=== PATIENT | male | born 2000 | race Caucasian/White ===

== ENCOUNTER 2021-03-20 20:02 | Emergency (ER) | payer SELFPAY ==
[2021-03-20] MEDS ORDERED: Aspirin 81 MG Tab.Chew PO ONE (20:18)
[2021-03-20] MEDS ORDERED: Sodium Chloride 0.9% 10 ML Syringe FLUSH PRN (20:18)
--- NOTE | 2021-03-20 20:53 | EDM.PDOC ---
ED HPI GENERAL MEDICAL PROBLEM - General Chief Complaint: Chest Pain Stated Complaint: CHEST PAIN Time Seen by Provider: 03/20/21 20:10 Source of Information: Reports: Patient History Limitations: Reports: No Limitations - History of Present Illness INITIAL COMMENTS - FREE TEXT/NARRATIVE: The patient presents with chest pain. He says this started about a week ago. He helped lift a heavy couch up some stairs. The pain came on when he was sleeping that night and woke him up. He says the pain is mid sternal and it comes and goes. When he is resting it is gone but with taking a deep breath and moving the pain comes back. He has some shortness of breath with it at times. He has no fever, chills, cough, congestion, abdominal pain, nausea or vomiting. 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 He never had an ablation and he is not on any medications. He does not feel like his hear is racing. He does not smoke. Onset: Gradual Duration: Week(s): Location: Reports: Chest Quality: Reports: Sharp Severity: Moderate Improves with: Reports: None Worsens with: Reports: None Associated Symptoms: Reports: Chest Pain, Shortness of Breath. Denies: Cough, Fever/Chills, Headaches, Nausea/Vomiting Middle Chest Pain Score (Numeric/FACES): 7 - Related Data Allergies Allergy/AdvReac Type Severity Reaction Status Date / Time No Known Allergies Allergy Verified 03/20/21 20:13 Home Meds: Home Meds Naproxen [Naprosyn] 500 mg PO BID PRN #20 tablet 03/20/21 [Rx] Past Medical History Cardiovascular History: Reports: Other (See Below) Other Cardiovascular History: WPW Endocrine/Metabolic History: Reports: Obesity/BMI 30+ - Past Surgical History HEENT Surgical History: Reports: Tonsillectomy Social & Family History - Tobacco Use Tobacco Use Status *Q: Never Tobacco User - Caffeine Use Caffeine Use: Reports: Soda - Recreational Drug Use Recreational Drug Use: No ED ROS GENERAL - Review of Systems Review Of Systems: See Below Constitutional: Reports: No Symptoms HEENT: Reports: No Symptoms Respiratory: Reports: Shortness of Breath Cardiovascular: Reports: Chest Pain Endocrine: Reports: No Symptoms GI/Abdominal: Reports: No Symptoms : Reports: No Symptoms Musculoskeletal: Reports: No Symptoms Skin: Reports: No Symptoms ED EXAM, GENERAL - Physical Exam Exam: See Below Exam Limited By: No Limitations General Appearance: Alert, No Apparent Distress Ears: Normal External Exam Nose: Normal Inspection Head: Atraumatic, Normocephalic Neck: Normal Inspection Respiratory/Chest: No Respiratory Distress, Lungs Clear, Normal Breath Sounds Cardiovascular: Regular Rate, Rhythm, No Edema, No Murmur GI/Abdominal: Soft, Non-Tender, No Organomegaly, No Mass Back Exam: Normal Inspection Extremities: Normal Inspection #1 Interpretation EKG Date: 03/20/21 Time: 20:10 Rhythm: NSR Rate (Beats/Min): 72 Codorus: LAD-Left Codorus Deviation P-Wave: Present QRS: Wide ST-T: Elevated (slight elevation in inferior leads) QT: Normal EKG Interpretation Comments: Q waves in lead III and aVF Course - Vital Signs Last Recorded V/S: Last Vital Signs Temp 97.6 F 03/20/21 20:10 Pulse 71 03/20/21 20:10 Resp 16 03/20/21 20:10 BP 144/63 H 03/20/21 20:10 Pulse Ox 99 03/20/21 20:10 - Orders/Labs/Meds Orders: Active Orders 24 hr Category Date Time Status Cardiac Monitoring [RC] . DIRECTED Care 03/20/21 20:18 Active EKG 12 Lead [EKG Documentation Completion] [RC] ROUTINE Care 03/20/21 20:10 Active Peripheral IV Care [RC] . DIRECTED Care 03/20/21 20:19 Active Chest 1V Frontal [CR] Stat Exams 03/20/21 20:19 Taken Sodium Chloride 0.9% [Saline Flush] Med 03/20/21 20:18 Active 10 ml FLUSH ASDIRECTED PRN Peripheral IV Insertion Adult [OM.PC] Stat Oth 03/20/21 20:18 Ordered Medication Orders Sodium Chloride (Sodium Chloride 0.9% 10 Ml Syringe) 10 ml FLUSH ASDIRECTED PRN PRN Reason: Keep Vein Open Last Admin: 03/20/21 20:35 Dose: 10 ml Documented by: HERMMIC Labs: Laboratory Tests 03/20/21 03/20/21 03/20/21 Range/Units 20:20 20:20 20:20 WBC 13.06 H (4.23-9.07) K/mm3 RBC 5.39 (4.63-6.08) M/mm3 Hgb 15.3 (13.7-17.5) gm/dl Hct 46.6 (40.1-51.0) % MCV 86.5 (79.0-92.2) fl MCH 28.4 (25.7-32.2) pg MCHC 32.8 (32.2-35.5) g/dl RDW Std Deviation 41.9 (35.1-43.9) fL Plt Count 346 H (163-337) K/mm3 MPV 10.4 (9.4-12.3) fl Neut % (Auto) 65.3 (34.0-67.9) % Lymph % (Auto) 25.7 (21.8-53.1) % Mayes % (Auto) 7.7 (5.3-12.2) % Eos % (Auto) 0.8 (0.8-7.0) Baso % (Auto) 0.3 (0.1-1.2) % Neut # (Auto) 8.52 H (1.78-5.38) K/mm3 Lymph # (Auto) 3.36 (1.32-3.57) K/mm3 [place] # (Auto) 1.01 H (0.30-0.82) K/mm3 Eos # (Auto) 0.10 (0.04-0.54) K/mm3 Baso # (Auto) 0.04 (0.01-0.08) K/mm3 D-Dimer, Quantitative 0.28 (0.19-0.50) mg/L Sodium 141 (136-145) mEq/L Potassium 3.6 (3.5-5.1) mEq/L Chloride 104 (98-107) mEq/L Carbon Dioxide 24 (21-32) mEq/L Anion Gap 16.6 H (5-15) BUN 14 (7-18) mg/dL Creatinine 1.1 (0.7-1.3) mg/dL Est Cr Clr Drug Dosing 98.48 mL/min Estimated GFR (MDRD) > 60 (>60) mL/min BUN/Creatinine Ratio 12.7 L (14-18) Glucose 123 H (74-106) mg/dL Calcium 9.2 (8.5-10.1) mg/dL Total Bilirubin 0.8 (0.2-1.0) mg/dL AST 48 H (15-37) U/L ALT 60 (16-63) U/L Alkaline Phosphatase 87 (46-116) U/L Troponin I < 0.017 (0.00-0.056) ng/mL Total Protein 7.9 (6.4-8.2) g/dl Albumin 4.2 (3.4-5.0) g/dl Globulin 3.7 gm/dL Albumin/Globulin Ratio 1.1 (1-2) Meds: Medications Generic Name Dose Route Start Last Admin Trade Name Freq PRN Reason Stop Dose Admin Sodium Chloride 10 ml 03/20/21 20:18 03/20/21 20:35 Sodium Chloride 0.9% 10 Ml Syringe FLUSH 10 ml ASDIRECTED PRN Administration Keep Vein Open Discontinued Medications Generic Name Dose Route Start Last Admin Trade Name Freq PRN Reason Stop Dose Admin Aspirin 324 mg 03/20/21 20:18 03/20/21 20:34 Aspirin 81 Mg Tab.Chew PO 03/20/21 20:19 324 mg ONETIME ONE Administration - Re-Assessments/Exams Free Text/Narrative Re-Assessment/Exam: 03/20/21 20:53 I ordered an IV saline lock, EKG, aspirin, CXR and labs. 03/20/21 21:19 His EKG is not normal. He has a NSR with LVH and left axis deviation. There is slight ST elevation in the inferior leads with borderline QRS. There is also a delta wave consistent with WPW. His CXR shows an elevated WBC of 13.06. His D-dimer is negative. His anion gap is elevated at 16.6. His glucose is elevated at 123. His AST is elevated at 48. His troponin is negative. 03/20/21 22:40 He is doing better with the aspirin. I will discharge him home. I feel he has pleurisy. I will get him on some naprosyn and have him follow up with Dr Claudio. Departure - Departure Time of Disposition: 22:50 Disposition: Home, Self-Care 01 Condition: Good Clinical Impression: Atypical chest pain, Pleurisy, Lamine Parkinson White pattern seen on electrocardiogram Prescriptions: Naproxen [Naprosyn] 500 mg PO BID PRN #20 tablet PRN Reason: Pain Referrals: PCP,None [Primary Care Provider] - Brown Claudio MD [Physician] - 1 Week Forms: ED Department Discharge Additional Instructions: Take the naprosyn 2 times per day as needed for pain. Drink plenty of fluids. 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 Please return if you are worse. Sepsis Event Note (ED) - Evaluation Sepsis Screening Result: No Definite Risk - Focused Exam Vital Signs: Vital Signs Temp Pulse Resp BP Pulse Ox 03/20/21 20:10 97.6 F 71 16 144/63 H 99 - My Orders Last 24 Hours: My Active Orders 03/20/21 20:10 EKG 12 Lead [EKG Documentation Completion] [RC] ROUTINE 03/20/21 20:18 Cardiac Monitoring [RC] . DIRECTED Sodium Chloride 0.9% [Saline Flush] 10 ml FLUSH ASDIRECTED PRN Peripheral IV Insertion Adult [OM.PC] Stat 03/20/21 20:19 Peripheral IV Care [RC] . DIRECTED Chest 1V Frontal [CR] Stat - Assessment/Plan Last 24 Hours: My Active Orders 03/20/21 20:10 EKG 12 Lead [EKG Documentation Completion] [RC] ROUTINE 03/20/21 20:18 Cardiac Monitoring [RC] . DIRECTED Sodium Chloride 0.9% [Saline Flush] 10 ml FLUSH ASDIRECTED PRN Peripheral IV Insertion Adult [OM.PC] Stat 03/20/21 20:19 Peripheral IV Care [RC] . DIRECTED Chest 1V Frontal [CR] Stat
--- NOTE | 2021-03-21 08:20 | CR ---
Chest: Portable view of the chest was obtained. Comparison: No previous chest imaging is available. Heart size and mediastinum are within normal limits. Lungs are clear with no acute parenchymal change. No acute osseous finding is appreciated. Impression: 1. Nothing acute is seen on portable chest x-ray. Diagnostic code #1
== END 2021-03-20 23:03 | disposition home or self-care (01) ==
LOC: JD.ED 20:02
DX: R09.1 Pleurisy (principal); I45.6 Pre-excitation syndrome; E66.9 Obesity, unspecified; Z68.33 Body mass index [BMI] 33.0-33.9, adult
CPT/HCPCS: 36415; 71045; 80053; 84484; 85025; 85379; 93005; 99285; A9270; 93010; 99284

== ENCOUNTER 2021-04-20 09:12 | Inpatient (IN) | payer OTHER ==
[2021-04-20] MEDS ORDERED: Sodium Chloride 0.9% 10 ML Syringe FLUSH PRN (10:03)
[2021-04-20] MEDS ORDERED: Morphine 4 MG/ML Syringe IVPUSH ONE (10:04)
[2021-04-20] MEDS ORDERED: Sodium Chloride 0.9% 1,000 ML IV ONE (10:04)
[2021-04-20] MEDS ORDERED: Ondansetron 4 MG/2 ML SDV IVPUSH ONE (10:04)
--- NOTE | 2021-04-20 10:05 | EDM.PDOC ---
ED HPI GENERAL MEDICAL PROBLEM - General Chief Complaint: Chest Pain Stated Complaint: CHEST PAIN Time Seen by Provider: 04/20/21 09:18 Source of Information: Reports: Patient, Significant Other History Limitations: Reports: No Limitations - History of Present Illness INITIAL COMMENTS - FREE TEXT/NARRATIVE: Patient describes a was diagnosed with Vffci-Kfkiocmtj-Wlegd next month and then on Wednesday started having sharp pain in the mid epigastric retrosternal area. 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 He then started develop upset stomach with some nausea, pain started develop in the right upper and right lower quadrant. He then developed vomiting and has not been able to really keep anything down. He is lost his appetite. He been trying to drink more fluids. Otherwise no coughing or cold symptoms no runny nose or sore throat. Hurts to take a big breath based on the pain that he has in the epigastric right upper quadrant. Hurts more with movement better at rest. No diarrhea. No burning pain or blood in the urine. No syncope or near fainting spell chest pain is more sharp persistent no palpitations noted. Epigastric Pain Score (Numeric/FACES): 8 - Related Data Allergies Allergy/AdvReac Type Severity Reaction Status Date / Time No Known Allergies Allergy Verified 04/20/21 09:23 Home Meds: Home Meds . [No Known Home Meds] 04/20/21 [History] Past Medical History Cardiovascular History: Reports: Other (See Below) Other Cardiovascular History: WPW Endocrine/Metabolic History: Reports: Obesity/BMI 30+ - Past Surgical History HEENT Surgical History: Reports: Tonsillectomy Social & Family History - Tobacco Use Tobacco Use Status *Q: Never Tobacco User - Caffeine Use Caffeine Use: Reports: Soda - Recreational Drug Use Recreational Drug Use: No ED ROS GENERAL - Review of Systems Review Of Systems: See Below Constitutional: Reports: Fever. Denies: Chills HEENT: Denies: Rhinitis, Vision Change Respiratory: Reports: Shortness of Breath, Cough Cardiovascular: Reports: Chest Pain. Denies: Dyspnea on Exertion, Lightheadedness, Palpitations, Syncope GI/Abdominal: Reports: Abdominal Pain, Decreased Appetite, Nausea, Vomiting. Denies: Distension : Denies: Dysuria, Flank Pain, Frequency, Urgency Musculoskeletal: Denies: Neck Pain Skin: Reports: No Symptoms Neurological: Denies: Dizziness, Headache Psychiatric: Reports: No Symptoms ED EXAM, GENERAL - Physical Exam Exam: See Below Exam Limited By: No Limitations General Appearance: Alert, WD/WN, No Apparent Distress, Moderate Distress Eye Exam: Bilateral Eye: EOMI, PERRL Throat/Mouth: Normal Oropharynx Head: Atraumatic Neck: Supple Respiratory/Chest: No Respiratory Distress, Lungs Clear, Normal Breath Sounds Cardiovascular: Normal Peripheral Pulses, Regular Rate, Rhythm, No Edema, No JVD Peripheral Pulses: 2+: Radial (L), Radial (R) GI/Abdominal: Normal Bowel Sounds, Soft, No Distention, Rebound, Tender, Other (Right lower quadrant pain with rebound tenderness, does have some mild right upper quadrant tenderness no David's tenderness however) Extremities: Normal Range of Motion, No Pedal Edema #1 Interpretation EKG Date: 04/20/21 Time: 11:11 Rhythm: NSR Comparison: No Change (I reviewed the EKG showing sinus rhythm rate of 78 DE 149 QRS is 78 QT corrected 372 delta waves noted in lead V2, inferior Q waves noted in 3 aVF, do not agree with interpretation for an acute MO there is no major acute ST elevation. Compared with his EKG of March 20, 2021) EKG Interpretation Comments: Today's EKG is compared with EKG from March 20, 2021 and it still shows what looks like the delta waves, does show inferior Q waves same leads and otherwise no appreciable changes. Course - Vital Signs Text/Narrative:: Rule out acute appendicitis cholecystitis biliary colic gastroesophageal reflux acute coronary syndrome although very unlikely with no risk factors with mom and dad are still living in otherwise healthy, non-smoker no alcohol or drug use. Will reevaluate Vkgwd-Crpgynkqv-Ylkff at this point he does not show any signs of any supraventricular arrhythmia. Last Recorded V/S: Last Vital Signs Temp 99.1 F 04/20/21 14:02 Pulse 79 04/20/21 14:02 Resp 16 04/20/21 14:02 BP 134/77 04/20/21 14:02 Pulse Ox 99 04/20/21 14:02 - Orders/Labs/Meds Orders: Active Orders 24 hr Category Date Time Status Sodium Chloride 0.9% [Saline Flush] Med 04/20/21 11:30 Active 10 ml FLUSH ASDIRECTED Sodium Chloride 0.9% [Saline Flush] Med 04/20/21 10:03 Active 10 ml FLUSH ASDIRECTED PRN Peripheral IV Insertion Adult [OM.PC] Stat Oth 04/20/21 10:03 Ordered EKG 12 Lead [EK] Stat Ther 04/20/21 10:45 Ordered Medication Orders Docusate Sodium (Docusate Sodium 100 Mg Cap) 100 mg PO BID PRN PRN Reason: Constipation Enoxaparin Sodium (Enoxaparin 40 Mg/0.4 Ml Syringe) 40 mg SUBCUT DAILY ELOINA Sodium Chloride (Normal Saline) 1,000 mls @ 125 mls/hr IV ASDIRECTED ELOINA Last Admin: 04/20/21 14:21 Dose: 125 mls/hr Documented by: MILTON Morphine Sulfate (Morphine 2 Mg/Ml Syringe) 2 mg IVPUSH Q2H PRN PRN Reason: Pain (severe 7-10) Stop: 04/21/21 13:08 Last Admin: 04/20/21 14:18 Dose: 2 mg Documented by: MILTON Ondansetron HCl (Ondansetron 4 Mg/2 Ml Sdv) 4 mg IV Q4H PRN PRN Reason: Nausea/Vomiting Last Admin: 04/20/21 14:18 Dose: 4 mg Documented by: MILTON Pantoprazole Sodium (Pantoprazole 40 Mg Vial) 40 mg IV Q12HR ELOINA Sodium Chloride (Sodium Chloride 0.9% 10 Ml Syringe) 10 ml FLUSH ASDIRECTED PRN PRN Reason: Keep Vein Open Last Admin: 04/20/21 10:41 Dose: 10 ml Documented by: ADRIANA Sodium Chloride (Sodium Chloride 0.9% 10 Ml Syringe) 10 ml FLUSH ASDIRECTED ELOINA Last Admin: 04/20/21 11:44 Dose: 10 ml Documented by: RIGO Temazepam (Temazepam 15 Mg Cap) 15 mg PO BEDTIME PRN PRN Reason: Sleep Labs: Laboratory Tests 04/20/21 04/20/21 04/20/21 Range/Units 10:35 10:35 10:35 WBC 23.34 H (4.23-9.07) K/mm3 RBC 5.39 (4.63-6.08) M/mm3 Hgb 15.4 (13.7-17.5) gm/dl Hct 46.9 (40.1-51.0) % MCV 87.0 (79.0-92.2) fl MCH 28.6 (25.7-32.2) pg MCHC 32.8 (32.2-35.5) g/dl RDW Std Deviation 45.8 H (35.1-43.9) fL Plt Count 308 (163-337) K/mm3 MPV 11.0 (9.4-12.3) fl Neut % (Auto) 84.9 H (34.0-67.9) % Lymph % (Auto) 6.4 L (21.8-53.1) % [place] % (Auto) 8.3 (5.3-12.2) % Eos % (Auto) 0 L (0.8-7.0) Baso % (Auto) 0.1 (0.1-1.2) % Neut # (Auto) 19.79 H (1.78-5.38) K/mm3 Lymph # (Auto) 1.50 (1.32-3.57) K/mm3 [place] # (Auto) 1.94 H (0.30-0.82) K/mm3 Eos # (Auto) 0.00 L (0.04-0.54) K/mm3 Baso # (Auto) 0.03 (0.01-0.08) K/mm3 Manual Slide Review Abnormal smear Sodium 137 (136-145) mEq/L Potassium 3.6 (3.5-5.1) mEq/L Chloride 97 L (98-107) mEq/L Carbon Dioxide 28 (21-32) mEq/L Anion Gap 15.6 H (5-15) BUN 18 (7-18) mg/dL Creatinine 1.1 (0.7-1.3) mg/dL Est Cr Clr Drug Dosing 105.34 mL/min Estimated GFR (MDRD) > 60 (>60) mL/min BUN/Creatinine Ratio 16.4 (14-18) Glucose 139 H (70-99) mg/dL Calcium 9.5 (8.5-10.1) mg/dL Total Bilirubin 2.4 H (0.2-1.0) mg/dL AST 147 H (15-37) U/L ALT 541 H (16-63) U/L Alkaline Phosphatase 240 H (46-116) U/L Troponin I < 0.017 (0.00-0.056) ng/mL C-Reactive Protein 5.2 H* (<1.0) mg/dL Total Protein 8.4 H (6.4-8.2) g/dl Albumin 4.3 (3.4-5.0) g/dl Globulin 4.1 gm/dL Albumin/Globulin Ratio 1.1 (1-2) Triglycerides 93 (<150) mg/dL Cholesterol 215 H (<200) mg/dL LDL Cholesterol Direct 127 H* (<100) mg/dL HDL Cholesterol 57.0 (40-59) mg/dL Lipase 2430 H (73-393) U/L SARS-CoV-2 RNA (KYLER) (NEGATIVE) 04/20/21 Range/Units 12:58 WBC (4.23-9.07) K/mm3 RBC (4.63-6.08) M/mm3 Hgb (13.7-17.5) gm/dl Hct (40.1-51.0) % MCV (79.0-92.2) fl MCH (25.7-32.2) pg MCHC (32.2-35.5) g/dl RDW Std Deviation (35.1-43.9) fL Plt Count (163-337) K/mm3 MPV (9.4-12.3) fl Neut % (Auto) (34.0-67.9) % Lymph % (Auto) (21.8-53.1) % [place] % (Auto) (5.3-12.2) % Eos % (Auto) (0.8-7.0) Baso % (Auto) (0.1-1.2) % Neut # (Auto) (1.78-5.38) K/mm3 Lymph # (Auto) (1.32-3.57) K/mm3 [place] # (Auto) (0.30-0.82) K/mm3 Eos # (Auto) (0.04-0.54) K/mm3 Baso # (Auto) (0.01-0.08) K/mm3 Manual Slide Review Sodium (136-145) mEq/L Potassium (3.5-5.1) mEq/L Chloride (98-107) mEq/L Carbon Dioxide (21-32) mEq/L Anion Gap (5-15) BUN (7-18) mg/dL Creatinine (0.7-1.3) mg/dL Est Cr Clr Drug Dosing mL/min Estimated GFR (MDRD) (>60) mL/min BUN/Creatinine Ratio (14-18) Glucose (70-99) mg/dL Calcium (8.5-10.1) mg/dL Total Bilirubin (0.2-1.0) mg/dL AST (15-37) U/L ALT (16-63) U/L Alkaline Phosphatase (46-116) U/L Troponin I (0.00-0.056) ng/mL C-Reactive Protein (<1.0) mg/dL Total Protein (6.4-8.2) g/dl Albumin (3.4-5.0) g/dl Globulin gm/dL Albumin/Globulin Ratio (1-2) Triglycerides (<150) mg/dL Cholesterol (<200) mg/dL LDL Cholesterol Direct (<100) mg/dL HDL Cholesterol (40-59) mg/dL Lipase (73-393) U/L SARS-CoV-2 RNA (KYLER) Negative (NEGATIVE) White blood cell count 23,300 hemoglobin 15.4 hematocrit 46.9 platelet count is 308,019.79% neutrophils sodium 137 potassium 3.6 chloride 97 CO2 28 BUN is 18 creatinine 1.1 creatinine clearance greater than 60 glucose is 139 bilirubin 2.4 AST 147 ALT 541 alkaline phos 240 troponin negative CRP is 5.2 lipase is 2400. Meds: Medications Generic Name Dose Route Start Last Admin Trade Name Freq PRN Reason Stop Dose Admin Docusate Sodium 100 mg 04/20/21 13:03 Docusate Sodium 100 Mg Cap PO BID PRN Constipation Enoxaparin Sodium 40 mg 04/21/21 09:00 Enoxaparin 40 Mg/0.4 Ml Syringe SUBCUT DAILY ELOINA Sodium Chloride 1,000 mls @ 125 mls/hr 04/20/21 13:15 04/20/21 14:21 Normal Saline IV 125 mls/hr ASDIRECTED ELOINA Administration Morphine Sulfate 2 mg 04/20/21 13:03 04/20/21 14:18 Morphine 2 Mg/Ml Syringe IVPUSH 04/21/21 13:08 2 mg Q2H PRN Administration Pain (severe 7-10) Ondansetron HCl 4 mg 04/20/21 13:03 04/20/21 14:18 Ondansetron 4 Mg/2 Ml Sdv IV 4 mg Q4H PRN Administration Nausea/Vomiting Pantoprazole Sodium 40 mg 04/20/21 21:00 Pantoprazole 40 Mg Vial IV Q12HR ELOINA Sodium Chloride 10 ml 04/20/21 10:03 04/20/21 10:41 Sodium Chloride 0.9% 10 Ml Syringe FLUSH 10 ml ASDIRECTED PRN Administration Keep Vein Open Sodium Chloride 10 ml 04/20/21 11:30 04/20/21 11:44 Sodium Chloride 0.9% 10 Ml Syringe FLUSH 10 ml ASDIRECTED ELOINA Administration Temazepam 15 mg 04/20/21 13:03 Temazepam 15 Mg Cap PO BEDTIME PRN Sleep Discontinued Medications Generic Name Dose Route Start Last Admin Trade Name Freq PRN Reason Stop Dose Admin Diatrizoate Meglum/Diatrizoate Sod 120 ml 04/20/21 11:16 04/20/21 11:44 Diatrizoate Meglumine/Diatrizoate Sodium 37% 120 Ml Bottle PO 04/20/21 11:17 45 ml ONETIME ONE Administration Sodium Chloride 1,000 mls @ 999 mls/hr 04/20/21 10:04 04/20/21 10:40 Normal Saline IV 04/20/21 11:04 999 mls/hr ONETIME ONE Administration Lactated Ringer's 1,000 mls @ 999 mls/hr 04/20/21 12:31 04/20/21 12:39 Ringers, Lactated IV 04/20/21 13:31 999 mls/hr .BOLUS ONE Administration Iopamidol 50 ml 04/20/21 11:16 04/20/21 11:44 Iopamidol 612 Mg/Ml 50 Ml Sdv IVPUSH 04/20/21 11:17 50 ml ONETIME ONE Administration Iopamidol 100 ml 04/20/21 11:16 04/20/21 11:44 Iopamidol 612 Mg/Ml 100 Ml Bottle IVPUSH 04/20/21 11:17 100 ml ONETIME ONE Administration Morphine Sulfate 4 mg 04/20/21 10:04 04/20/21 10:40 Morphine 4 Mg/Ml Syringe IVPUSH 04/20/21 10:05 4 mg ONETIME ONE Administration Ondansetron HCl 4 mg 04/20/21 10:04 04/20/21 10:37 Ondansetron 4 Mg/2 Ml Sdv IVPUSH 04/20/21 10:05 4 mg ONETIME ONE Administration Pantoprazole Sodium 40 mg 04/20/21 12:32 04/20/21 12:39 Pantoprazole 40 Mg Vial IVPUSH 04/20/21 12:33 40 mg ONETIME ONE Administration - Radiology Interpretation Free Text/Narrative:: Portable chest x-ray compared with chest x-ray from March 20, 2021 shows heart size mediastinum within normal limits lungs are clear with no acute parenchymal change no acute osseous abnormality otherwise nothing acute on portable chest x- ray. CT Results Date: 04/20/21 - Re-Assessments/Exams Free Text/Narrative Re-Assessment/Exam: 04/20/21 12:29 Patient is doing better tolerating IV fluids pain is better. Reviewed the results especially with elevated white count elevated liver function tests will screen ultrasound to rule out obstructive stone otherwise patient will need to be admitted. Will discuss case with . Patient otherwise will be giving more IV fluid resuscitation pain management 04/20/21 12:[address] Watkins for admit and further evaluation Departure - Departure Time of Disposition: 11:00 Disposition: Admitted As Inpatient 64 Condition: Fair Clinical Impression: Pancreatitis, acute Qualifiers: Pancreatitis type: biliary Acute pancreatitis complication: unspecified Qualified Code(s): K85.10 - Biliary acute pancreatitis without necrosis or infection Leukocytosis, unspecified Qualifiers: Leukocytosis type: bandemia Qualified Code(s): D72.825 - Bandemia Sepsis Event Note (ED) - Evaluation Sepsis Screening Result: No Definite Risk - Focused Exam Vital Signs: Vital Signs Temp Pulse Resp BP Pulse Ox 04/20/21 09:19 97.4 F 98 16 137/82 95 - My Orders Last 24 Hours: My Active Orders 04/20/21 10:03 Sodium Chloride 0.9% [Saline Flush] 10 ml FLUSH ASDIRECTED PRN Peripheral IV Insertion Adult [OM.PC] Stat 04/20/21 10:45 EKG 12 Lead [EK] Stat 04/20/21 11:30 Sodium Chloride 0.9% [Saline Flush] 10 ml FLUSH ASDIRECTED - Assessment/Plan Last 24 Hours: My Active Orders 04/20/21 10:03 Sodium Chloride 0.9% [Saline Flush] 10 ml FLUSH ASDIRECTED PRN Peripheral IV Insertion Adult [OM.PC] Stat 04/20/21 10:45 EKG 12 Lead [EK] Stat 04/20/21 11:30 Sodium Chloride 0.9% [Saline Flush] 10 ml FLUSH ASDIRECTED
--- NOTE | 2021-04-20 10:42 | CR ---
Chest: Portable view of the chest was obtained. Comparison: Prior chest x-ray of 03/20/21. Heart size and mediastinum are within normal limits. Lungs are clear with no acute parenchymal change. No acute osseous abnormality is appreciated. Impression: 1. Nothing acute is identified on portable chest x-ray. Diagnostic code #1
[2021-04-20] MEDS ORDERED: Diatrizoate Meglumine/Diatrizoate Sodium 37% 120 ML Bottle PO ONE (11:16)
[2021-04-20] MEDS ORDERED: Iopamidol 612 MG/ML 50 ML SDV IVPUSH ONE (11:16)
[2021-04-20] MEDS ORDERED: Iopamidol 612 MG/ML 100 ML Bottle IVPUSH ONE (11:16)
[2021-04-20] MEDS ORDERED: Sodium Chloride 0.9% 10 ML Syringe FLUSH SCH (11:30)
--- NOTE | 2021-04-20 12:14 | CT ---
CT abdomen and pelvis Technique: Multiple axial sections were obtained from above the dome of the diaphragm inferiorly through the pubic symphysis. Intravenous contrast as well as a small amount of oral contrast is seen. Additional delayed images were obtained through the bladder. Reconstructed coronal and sagittal images were obtained. Comparison: No previous abdominal or pelvic imaging is available Findings: Inflammatory change is seen either off the inferior pancreas or duodenum. This extends into the anterior pararenal fascia and slightly into the pelvis. This inflammatory change is noted on both sides. Slight atelectasis is noted within both lung bases. Liver contains no focal parenchymal abnormality. Spleen appears normal. Adrenal glands show no nodule. Kidneys show symmetric contrast enhancement without hydronephrosis or mass. Abdominal aorta shows no aneurysm. No retroperitoneal adenopathy or mesenteric abnormalities are seen. No pelvic mass or adenopathy is seen. Delayed images show contrast within the distal ureters and within the bladder. Normal appendix is felt to be visualized on the parasagittal images. Impression: 1. Inflammatory change either off the inferior pancreas or duodenum. This causes inflammatory change within the anterior pararenal fascia extending into the pelvis on both sides. Please correlate with patient's symptoms and laboratory values. 2. Slight atelectasis within the lung bases. 3. No other acute abnormality is appreciated on CT study of the abdomen and pelvis. Diagnostic code #3
[2021-04-20] MEDS ORDERED: Lactated Ringers 1,000 ML IV ONE (12:31)
[2021-04-20] MEDS ORDERED: Pantoprazole 40 MG Vial IVPUSH ONE (12:32)
[2021-04-20] MEDS ORDERED: Temazepam 15 MG Cap PO PRN (13:03)
[2021-04-20] MEDS ORDERED: Ondansetron 4 MG/2 ML SDV IV PRN (13:03)
[2021-04-20] MEDS ORDERED: Docusate Sodium 100 MG Cap PO PRN (13:03)
--- NOTE | 2021-04-20 13:11 | PCM.HP.2 ---
H&P History of Present Illness - General Date of Service: 04/20/21 Admit Problem/Dx: Admission Diagnosis/Problem Admission Diagnosis/Problem Pancreatitis due to biliary obstruction Source of Information: Patient History Limitations: Reports: No Limitations - History of Present Illness Initial Comments - Free Text/Narative: The patient is an otherwise healthy 20-year-old gentleman who has presented to the emergency department with a complaint of midsternal chest pain. The patient had presented to the emergency department because he has been recently diagnosed with [id number]-Lawrixhuh-Avszq syndrome and he has been told previously that this is resulted in his chest pain. The patient had been worked up in the emergency department and it was reported that he had epigastric pain along with right upper quadrant pain. The patient says that his pain started up around 7 PM 2 days ago and did not have a specific aggravating event. The patient says that his pain has been worsened with the use of food. He also says that the pain has been sharp and stabbing. The patient also says that he has had some nausea and vomiting and has not been able to keep food or water down. The patient denies any alcohol use. The patient says that he is currently working. The patient s ays that he has follow-up scheduled with cardiology. Onset of Symptoms: Reports: Sudden Duration of Symptoms: Reports: Day(s):, Getting Worse Location: Reports: Abdomen Quality: Reports: Burning, Stabbing Severity: Moderate Improves with: Reports: Rest Worsens with: Reports: Eating Associated Symptoms: Reports: Nausea/Vomiting Epigastric Pain Score (Numeric/FACES): 8 - Related Data Allergies/Adverse Reactions: Allergies Allergy/AdvReac Type Severity Reaction Status Date / Time No Known Allergies Allergy Verified 04/20/21 09:23 Home Medications: Home Meds . [No Known Home Meds] 04/20/21 [History] Past Medical History HEENT History: Reports: None Cardiovascular History: Reports: Other (See Below) Other Cardiovascular History: WPW Respiratory History: Reports: None Gastrointestinal History: Reports: None Genitourinary History: Reports: None Musculoskeletal History: Reports: None Neurological History: Reports: None Psychiatric History: Reports: None Endocrine/Metabolic History: Reports: Obesity/BMI 30+ Hematologic History: Reports: None Immunologic History: Reports: None Oncologic (Cancer) History: Reports: None Dermatologic History: Reports: None - Infectious Disease History Infectious Disease History: Reports: None - Past Surgical History HEENT Surgical History: Reports: Tonsillectomy Social & Family History - Tobacco Use Tobacco Use Status *Q: Never Tobacco User - Caffeine Use Caffeine Use: Reports: Soda - Alcohol Use Alcohol Use History: No - Recreational Drug Use Recreational Drug Use: No - Living Situation & Occupation Living situation: Reports: Single Occupation: Employed H&P Review of Systems - Review of Systems: Review Of Systems: See Below General: Reports: Weakness, Decreased Appetite HEENT: Reports: No Symptoms Pulmonary: Reports: Shortness of Breath, Pleuritic Chest Pain Cardiovascular: Reports: Chest Pain Gastrointestinal: Reports: Abdominal Pain, Nausea, Vomiting Genitourinary: Reports: No Symptoms Musculoskeletal: Reports: No Symptoms Skin: Reports: No Symptoms Psychiatric: Reports: No Symptoms Neurological: Reports: No Symptoms Hematologic/Lymphatic: Reports: No Symptoms Immunologic: Reports: No Symptoms Exam - Exam Exam: See Below - Vital Signs Vital Signs: Last Vital Signs Temp 36.3 C 04/20/21 09:19 Pulse 98 04/20/21 09:19 Resp 16 04/20/21 09:19 BP 137/82 04/20/21 09:19 Pulse Ox 95 04/20/21 09:19 Weight: 95.254 kg - Exam Quality Assessment: No: Supplemental Oxygen General: Alert, Oriented, Cooperative, Mild Distress HEENT: Conjunctiva Clear, EACs Clear, Hearing Intact, Nares Patent, PERRLA. No: Mucosa Moist & [place] (Dry) Neck: Supple, Trachea Midline Lungs: Clear to Auscultation, Normal Respiratory Effort Cardiovascular: Regular Rate, Regular Rhythm GI/Abdominal Exam: Normal Bowel Sounds, Soft, No Distention, Tender (Right upper quadrant). No: Guarding, Rigid, Rebound (Male) Exam: Deferred Rectal (Males) Exam: Deferred Back Exam: Normal Inspection, Full Range of Motion Extremities: Normal Inspection, Normal Range of Motion, No Pedal Edema Skin: Warm, Dry, Intact Neurological: Cranial Nerves Intact, Reflexes Equal Bilateral, Normal Gait, Normal Speech Neuro Extensive - Mental Status: Alert, Oriented x3 Neuro Extensive - Motor, Sensory, Reflexes: CN II-XII Intact Psychiatric: Alert, Normal Affect, Normal Mood - Patient Data Lab Results Last 24 hrs: Laboratory Results - last 24 hr 05/23/21 05/23/21 Range/Units 10:35 10:35 WBC 23.34 H (4.23-9.07) K/mm3 RBC 5.39 (4.63-6.08) M/mm3 Hgb 15.4 (13.7-17.5) gm/dl Hct 46.9 (40.1-51.0) % MCV 87.0 (79.0-92.2) fl MCH 28.6 (25.7-32.2) pg MCHC 32.8 (32.2-35.5) g/dl RDW Std Deviation 45.8 H (35.1-43.9) fL Plt Count 308 (163-337) K/mm3 MPV 11.0 (9.4-12.3) fl Neut % (Auto) 84.9 H (34.0-67.9) % Lymph % (Auto) 6.4 L (21.8-53.1) % [place] % (Auto) 8.3 (5.3-12.2) % Eos % (Auto) 0 L (0.8-7.0) Baso % (Auto) 0.1 (0.1-1.2) % Neut # (Auto) 19.79 H (1.78-5.38) K/mm3 Lymph # (Auto) 1.50 (1.32-3.57) K/mm3 [place] # (Auto) 1.94 H (0.30-0.82) K/mm3 Eos # (Auto) 0.00 L (0.04-0.54) K/mm3 Baso # (Auto) 0.03 (0.01-0.08) K/mm3 Manual Slide Review Abnormal smear Sodium 137 (136-145) mEq/L Potassium 3.6 (3.5-5.1) mEq/L Chloride 97 L (98-107) mEq/L Carbon Dioxide 28 (21-32) mEq/L Anion Gap 15.6 H (5-15) BUN 18 (7-18) mg/dL Creatinine 1.1 (0.7-1.3) mg/dL Est Cr Clr Drug Dosing 105.34 mL/min Estimated GFR (MDRD) > 60 (>60) mL/min BUN/Creatinine Ratio 16.4 (14-18) Glucose 139 H (70-99) mg/dL Calcium 9.5 (8.5-10.1) mg/dL Total Bilirubin 2.4 H (0.2-1.0) mg/dL AST 147 H (15-37) U/L ALT 541 H (16-63) U/L Alkaline Phosphatase 240 H (46-116) U/L Troponin I < 0.017 (0.00-0.056) ng/mL C-Reactive Protein 5.2 H* (<1.0) mg/dL Total Protein 8.4 H (6.4-8.2) g/dl Albumin 4.3 (3.4-5.0) g/dl Globulin 4.1 gm/dL Albumin/Globulin Ratio 1.1 (1-2) Lipase 2430 H (73-393) U/L Result Diagrams: 04/20/21 10:35 04/20/21 10:35 Sepsis Event Note - Evaluation Sepsis Screening Result: No Definite Risk - Focused Exam Vital Signs: Vital Signs Temp Pulse Resp BP Pulse Ox 04/20/21 09:19 36.3 C 98 16 137/82 95 - Problem List (1) Pancreatitis, acute SNOMED Code(s): 474912345 ICD Code: K85.90 - ACUTE PANCREATITIS WITHOUT NECROSIS OR INFECTION, UNSP Status: Acute Current Visit: Yes Qualifiers: Pancreatitis type: biliary Acute pancreatitis complication: unspecified Qualified Code(s): K85.10 - Biliary acute pancreatitis without necrosis or infection (2) Leukocytosis, unspecified SNOMED Code(s): 342184109, 817362957 ICD Code: D72.829 - ELEVATED WHITE BLOOD CELL COUNT, UNSPECIFIED Status: Acute Priority: High Current Visit: Yes Qualifiers: Leukocytosis type: bandemia Qualified Code(s): D72.825 - Bandemia (3) Pleurisy SNOMED Code(s): 412960832 ICD Code: R09.1 - PLEURISY Status: Acute Priority: High Current Visit: Yes (4) Lamine Parkinson White pattern seen on electrocardiogram SNOMED Code(s): 297027113 ICD Code: I45.6 - PRE-EXCITATION SYNDROME Status: Acute Priority: High Current Visit: Yes Problem List Initiated/Reviewed/Updated: Yes Orders Last 24hrs: Active Orders 24 hr Category Date Time Status Patient Status [ADT] Routine ADT 04/20/21 13:03 Ordered Cardiac Monitoring [RC] CONTINUOUS Care 04/20/21 13:07 Ordered EKG Documentation Completion [RC] ASDIRECTED Care 04/20/21 10:45 Active Oxygen Therapy [RC] PRN Care 04/20/21 13:03 Ordered Peripheral IV Care [RC] . DIRECTED Care 04/20/21 10:04 Active Up ad Angie [RC] ASDIRECTED Care 04/20/21 13:03 Ordered VTE/DVT Education [RC] PER UNIT ROUTINE Care 04/20/21 13:03 Ordered Vital Signs [RC] Q4H Care 04/20/21 13:03 Ordered Nothing per Oral Now Diet [DIET] Diet 04/20/21 Dinner Ordered Abdomen Ltd [US] Stat Exams 04/20/21 12:31 Ordered CBC WITH AUTO DIFF [HEME] AM Lab 04/21/21 05:11 Ordered COMPREHENSIVE METABOLIC PN,CMP [CHEM] AM Lab 04/21/21 05:11 Ordered CORONAVIRUS COVID-19 KYLER [MOLEC] Stat Lab 04/20/21 12:58 Received UA RFX KELLEN AND CULT IF INDIC [URIN] Stat Lab 04/20/21 10:03 Ordered Docusate Sodium [Colace] Med 04/20/21 13:03 Ordered 100 mg PO BID PRN Enoxaparin [Lovenox] Med 04/21/21 09:00 Ordered 30 mg SUBCUT DAILY Lactated Ringers [Ringers, Lactated] 1,000 ml Med 04/20/21 12:31 Active IV .BOLUS Morphine Med 04/20/21 13:03 Ordered 2 mg IVPUSH Q2H PRN Ondansetron [Zofran] Med 04/20/21 13:03 Ordered 4 mg IV Q4H PRN Pantoprazole [ProTONIX IV] Med 04/20/21 21:00 Ordered 40 mg IV Q12HR Sodium Chloride 0.9% @ 125 MLS/HR (1000ml) Med 04/20/21 13:15 Ordered Sodium Chloride 0.9% [Normal Saline] 1,000 ml IV ASDIRECTED Sodium Chloride 0.9% [Saline Flush] Med 04/20/21 11:30 Active 10 ml FLUSH ASDIRECTED Sodium Chloride 0.9% [Saline Flush] Med 04/20/21 10:03 Active 10 ml FLUSH ASDIRECTED PRN Temazepam [Restoril] Med 04/20/21 13:03 Ordered 15 mg PO BEDTIME PRN Peripheral IV Insertion Adult [OM.PC] Stat Oth 04/20/21 10:03 Ordered Resuscitation Status Routine Resus Stat 04/20/21 13:03 Ordered EKG 12 Lead [EK] Stat Ther 04/20/21 10:45 Ordered Medication Orders Docusate Sodium (Docusate Sodium 100 Mg Cap) 100 mg PO BID PRN PRN Reason: Constipation Enoxaparin Sodium (Enoxaparin 30 Mg/0.3 Ml Syringe) 30 mg SUBCUT DAILY ELOINA Lactated Ringer's (Ringers, Lactated) 1,000 mls @ 999 mls/hr IV .BOLUS ONE Stop: 04/20/21 13:31 Last Admin: 04/20/21 12:39 Dose: 999 mls/hr Documented by: MYKE Sodium Chloride (Normal Saline) 1,000 mls @ 125 mls/hr IV ASDIRECTED ELOINA Morphine Sulfate (Morphine 2 Mg/Ml Syringe) 2 mg IVPUSH Q2H PRN PRN Reason: Pain (severe 7-10) Stop: 04/21/21 13:08 Ondansetron HCl (Ondansetron 4 Mg/2 Ml Sdv) 4 mg IV Q4H PRN PRN Reason: Nausea/Vomiting Pantoprazole Sodium (Pantoprazole 40 Mg Vial) 40 mg IV Q12HR ELOINA Sodium Chloride (Sodium Chloride 0.9% 10 Ml Syringe) 10 ml FLUSH ASDIRECTED PRN PRN Reason: Keep Vein Open Last Admin: 04/20/21 10:41 Dose: 10 ml Documented by: ADRIANA Sodium Chloride (Sodium Chloride 0.9% 10 Ml Syringe) 10 ml FLUSH ASDIRECTED ELOINA Last Admin: 04/20/21 11:44 Dose: 10 ml Documented by: BUSCGRE Temazepam (Temazepam 15 Mg Cap) 15 mg PO BEDTIME PRN PRN Reason: Sleep Assessment/Plan Comment:: The patient is a 20-year-old gentleman who has been admitted to inpatient for acute pancreatitis, likely biliary induced. An ultrasound of the patient's right upper quadrant has been ordered to the emergency department is currently pending. The patient will be kept on IV fluids of normal saline at 125 mL/h. He will be kept n.p.o. with the exception of ice chips. The patient will have his pain controlled with the use of IV narcotics. DVT prophylaxis will be done with 40 mg of Lovenox daily. If necessary, general surgery will be consulted. The patient also has repeat laboratory studies ordered to include a lipid profile to help exclude hypertriglyceridemia as a cause of his pancreatitis. 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 As the patient is currently asymptomatic with the exception of the chest pain that he has been experiencing observation is indicated for treatment of his [id number]-Rdgmeonyg-[id number] syndrome. If the patient goes into reentry tachycardia will consider verapamil.
--- NOTE | 2021-04-20 14:12 | US ---
Limited abdominal ultrasound: Multiple real-time images were obtained. Comparison: Prior CT abdomen and pelvis study performed on the same day (04/20/21 11:37 AM). Technologist's note: Suboptimal study with patient's midline being very gaseous and could not lie on left side for too long. Findings: Liver not well visualized. No definite abnormality is appreciated. Gallbladder shows evidence of cholelithiasis. No gallbladder wall thickening or biliary duct dilatation is seen. Right kidney shows no hydronephrosis but is otherwise not wll-seen. Right kidney measures about 12.6 cm in size. Mid to proximal aorta not seen. Pancreas is obscured by overlying bowel gas. Inferior vena cava is patent. Main portal vein shows normal hepatopedal flow. Impression: 1. Less than optimal study. 2. Cholelithiasis with no gallbladder wall thickening or biliary duct dilatation being seen. 3. Pancreas is completely obscured. Diagnostic code #3
[2021-04-20] MEDS: Morphine 2 MG/ML SYRINGE IVPUSH PRN ×4 (14:18→22:51)
[2021-04-20] MEDS: Sodium Chloride 0.9% 1,000 ML IV SCH ×2 (14:21→21:16)
[2021-04-20] MEDS: Pantoprazole 40 MG Vial IV SCH (20:04)
[2021-04-21] MEDS: Morphine 2 MG/ML SYRINGE IVPUSH PRN ×8 (01:13→22:37)
[2021-04-21] MEDS: Enoxaparin 40 MG/0.4 ML Syringe SUBCUT SCH (08:35)
[2021-04-21] MEDS: Pantoprazole 40 MG Vial IV SCH ×2 (08:36→21:05)
--- NOTE | 2021-04-21 08:53 | PCM.PN ---
<Eulalio Molina - Last Filed: 04/21/21 11:13> - General Info Date of Service: 04/21/21 Admission Dx/Problem (Free Text): Admission Diagnosis/Problem Admission Diagnosis/Problem Pancreatitis due to biliary obstruction Functional Status: Reports: Ambulating, Urinating. Denies: Pain Controlled (Reports significant abdominal pain but is quite sleepy and appears comfortable. ), Tolerating Diet (NPO), New Symptoms - Review of Systems General: Reports: Weakness, Fatigue. Denies: Fever, Malaise, Chills HEENT: Reports: No Symptoms. Denies: Headaches, Sore Throat Pulmonary: Reports: No Symptoms. Denies: Shortness of Breath, Cough, Sputum, Wheezing Cardiovascular: Reports: No Symptoms. Denies: Chest Pain, Palpitations, Dyspnea on Exertion, Edema Gastrointestinal: Reports: Abdominal Pain, Decreased Appetite. Denies: Constipation, Diarrhea, Nausea, Vomiting Genitourinary: Reports: No Symptoms. Denies: Pain Musculoskeletal: Reports: No Symptoms Skin: Reports: No Symptoms. Denies: Cyanosis Neurological: Reports: No Symptoms. Denies: Confusion, Numbness, Pre-Existing Deficit, Tingling, Difficulty Walking, Gait Disturbance Psychiatric: Reports: No Symptoms - Patient Data Vitals - Most Recent: Last Vital Signs Temp 98.2 F 04/21/21 07:52 Pulse 91 04/21/21 07:52 Resp 20 04/21/21 07:52 BP 128/66 04/21/21 07:52 Pulse Ox 96 04/21/21 07:52 Weight - Most Recent: 95.889 kg I&O - Last 24 Hours: Intake & Output 04/20/21 04/21/21 04/21/21 22:59 06:59 14:59 Intake Total 341 1301 Output Total 450 600 Balance -109 701 Lab Results Last 24 Hours: Laboratory Results - last 24 hr 04/20/21 04/20/21 04/20/21 Range/Units 10:35 10:35 10:35 WBC 23.34 H (4.23-9.07) K/mm3 RBC 5.39 (4.63-6.08) M/mm3 Hgb 15.4 (13.7-17.5) gm/dl Hct 46.9 (40.1-51.0) % MCV 87.0 (79.0-92.2) fl MCH 28.6 (25.7-32.2) pg MCHC 32.8 (32.2-35.5) g/dl RDW Std Deviation 45.8 H (35.1-43.9) fL Plt Count 308 (163-337) K/mm3 MPV 11.0 (9.4-12.3) fl Neut % (Auto) 84.9 H (34.0-67.9) % Lymph % (Auto) 6.4 L (21.8-53.1) % Beaver % (Auto) 8.3 (5.3-12.2) % Eos % (Auto) 0 L (0.8-7.0) Baso % (Auto) 0.1 (0.1-1.2) % Neut # (Auto) 19.79 H (1.78-5.38) K/mm3 Lymph # (Auto) 1.50 (1.32-3.57) K/mm3 Beaver # (Auto) 1.94 H (0.30-0.82) K/mm3 Eos # (Auto) 0.00 L (0.04-0.54) K/mm3 Baso # (Auto) 0.03 (0.01-0.08) K/mm3 Manual Slide Review Abnormal smear Sodium 137 (136-145) mEq/L Potassium 3.6 (3.5-5.1) mEq/L Chloride 97 L (98-107) mEq/L Carbon Dioxide 28 (21-32) mEq/L Anion Gap 15.6 H (5-15) BUN 18 (7-18) mg/dL Creatinine 1.1 (0.7-1.3) mg/dL Est Cr Clr Drug Dosing 105.34 mL/min Estimated GFR (MDRD) > 60 (>60) mL/min BUN/Creatinine Ratio 16.4 (14-18) Glucose 139 H (70-99) mg/dL Calcium 9.5 (8.5-10.1) mg/dL Total Bilirubin 2.4 H (0.2-1.0) mg/dL AST 147 H (15-37) U/L ALT 541 H (16-63) U/L Alkaline Phosphatase 240 H (46-116) U/L Troponin I < 0.017 (0.00-0.056) ng/mL C-Reactive Protein 5.2 H* (<1.0) mg/dL Total Protein 8.4 H (6.4-8.2) g/dl Albumin 4.3 (3.4-5.0) g/dl Globulin 4.1 gm/dL Albumin/Globulin Ratio 1.1 (1-2) Triglycerides 93 (<150) mg/dL Cholesterol 215 H (<200) mg/dL LDL Cholesterol Direct 127 H* (<100) mg/dL HDL Cholesterol 57.0 (40-59) mg/dL Lipase 2430 H (73-393) U/L Urine Color (Yellow) Urine Appearance (Clear) Urine pH (5.0-8.0) Ur Specific Stuart (1.005-1.030) Urine Protein (Negative) Urine Glucose (UA) (Negative) Urine Ketones (Negative) Urine Occult Blood (Negative) Urine Nitrite (Negative) Urine Bilirubin (Negative) Urine Urobilinogen (0.2-1.0) Ur Leukocyte Esterase (Negative) Urine RBC (0-5) /hpf Urine WBC (0-5) /hpf Ur Squamous Epith Cells (0-5) /hpf Urine Bacteria (FEW) /hpf Urine Mucus (FEW) /hpf SARS-CoV-2 RNA (KYLER) (NEGATIVE) 04/20/21 04/20/21 04/21/21 Range/Units 12:58 15:38 06:08 WBC 21.31 H (4.23-9.07) K/mm3 RBC 4.72 (4.63-6.08) M/mm3 Hgb 13.3 L D (13.7-17.5) gm/dl Hct 42.4 (40.1-51.0) % MCV 89.8 (79.0-92.2) fl MCH 28.2 (25.7-32.2) pg MCHC 31.4 L (32.2-35.5) g/dl RDW Std Deviation 46.0 H (35.1-43.9) fL Plt Count 238 (163-337) K/mm3 MPV 11.0 (9.4-12.3) fl Neut % (Auto) 82.2 H (34.0-67.9) % Lymph % (Auto) 7.5 L (21.8-53.1) % Beaver % (Auto) 9.8 (5.3-12.2) % Eos % (Auto) 0.2 L (0.8-7.0) Baso % (Auto) 0.1 (0.1-1.2) % Neut # (Auto) 17.51 H (1.78-5.38) K/mm3 Lymph # (Auto) 1.59 (1.32-3.57) K/mm3 Beaver # (Auto) 2.09 H (0.30-0.82) K/mm3 Eos # (Auto) 0.04 (0.04-0.54) K/mm3 Baso # (Auto) 0.03 (0.01-0.08) K/mm3 Manual Slide Review Abnormal smear Sodium (136-145) mEq/L Potassium (3.5-5.1) mEq/L Chloride (98-107) mEq/L Carbon Dioxide (21-32) mEq/L Anion Gap (5-15) BUN (7-18) mg/dL Creatinine (0.7-1.3) mg/dL Est Cr Clr Drug Dosing mL/min Estimated GFR (MDRD) (>60) mL/min BUN/Creatinine Ratio (14-18) Glucose (70-99) mg/dL Calcium (8.5-10.1) mg/dL Total Bilirubin (0.2-1.0) mg/dL AST (15-37) U/L ALT (16-63) U/L Alkaline Phosphatase (46-116) U/L Troponin I (0.00-0.056) ng/mL C-Reactive Protein (<1.0) mg/dL Total Protein (6.4-8.2) g/dl Albumin (3.4-5.0) g/dl Globulin gm/dL Albumin/Globulin Ratio (1-2) Triglycerides (<150) mg/dL Cholesterol (<200) mg/dL LDL Cholesterol Direct (<100) mg/dL HDL Cholesterol (40-59) mg/dL Lipase (73-393) U/L Urine Color Yellow (Yellow) Urine Appearance Clear (Clear) Urine pH 6.0 (5.0-8.0) Ur Specific Stuart 1.020 (1.005-1.030) Urine Protein 1+ H (Negative) Urine Glucose (UA) Negative (Negative) Urine Ketones Negative (Negative) Urine Occult Blood Trace-lysed H (Negative) Urine Nitrite Negative (Negative) Urine Bilirubin Negative (Negative) Urine Urobilinogen 0.2 (0.2-1.0) Ur Leukocyte Esterase Negative (Negative) Urine RBC 0-5 (0-5) /hpf Urine WBC 0-5 (0-5) /hpf Ur Squamous Epith Cells 0-5 (0-5) /hpf Urine Bacteria Few (FEW) /hpf Urine Mucus Few (FEW) /hpf SARS-CoV-2 RNA (KYLER) Negative (NEGATIVE) 04/21/21 Range/Units 06:08 WBC (4.23-9.07) K/mm3 RBC (4.63-6.08) M/mm3 Hgb (13.7-17.5) gm/dl Hct (40.1-51.0) % MCV (79.0-92.2) fl MCH (25.7-32.2) pg MCHC (32.2-35.5) g/dl RDW Std Deviation (35.1-43.9) fL Plt Count (163-337) K/mm3 MPV (9.4-12.3) fl Neut % (Auto) (34.0-67.9) % Lymph % (Auto) (21.8-53.1) % Beaver % (Auto) (5.3-12.2) % Eos % (Auto) (0.8-7.0) Baso % (Auto) (0.1-1.2) % Neut # (Auto) (1.78-5.38) K/mm3 Lymph # (Auto) (1.32-3.57) K/mm3 Beaver # (Auto) (0.30-0.82) K/mm3 Eos # (Auto) (0.04-0.54) K/mm3 Baso # (Auto) (0.01-0.08) K/mm3 Manual Slide Review Sodium 142 (136-145) mEq/L Potassium 3.7 (3.5-5.1) mEq/L Chloride 105 (98-107) mEq/L Carbon Dioxide 27 (21-32) mEq/L Anion Gap 13.7 (5-15) BUN 14 (7-18) mg/dL Creatinine 0.9 (0.7-1.3) mg/dL Est Cr Clr Drug Dosing 128.74 mL/min Estimated GFR (MDRD) > 60 (>60) mL/min BUN/Creatinine Ratio 15.6 (14-18) Glucose 121 H (70-99) mg/dL Calcium 8.1 L (8.5-10.1) mg/dL Total Bilirubin 1.3 H (0.2-1.0) mg/dL AST 92 H (15-37) U/L ALT 372 H (16-63) U/L Alkaline Phosphatase 170 H (46-116) U/L Troponin I (0.00-0.056) ng/mL C-Reactive Protein (<1.0) mg/dL Total Protein 6.9 (6.4-8.2) g/dl Albumin 3.1 L (3.4-5.0) g/dl Globulin 3.8 gm/dL Albumin/Globulin Ratio 0.8 L (1-2) Triglycerides (<150) mg/dL Cholesterol (<200) mg/dL LDL Cholesterol Direct (<100) mg/dL HDL Cholesterol (40-59) mg/dL Lipase (73-393) U/L Urine Color (Yellow) Urine Appearance (Clear) Urine pH (5.0-8.0) Ur Specific Stuart (1.005-1.030) Urine Protein (Negative) Urine Glucose (UA) (Negative) Urine Ketones (Negative) Urine Occult Blood (Negative) Urine Nitrite (Negative) Urine Bilirubin (Negative) Urine Urobilinogen (0.2-1.0) Ur Leukocyte Esterase (Negative) Urine RBC (0-5) /hpf Urine WBC (0-5) /hpf Ur Squamous Epith Cells (0-5) /hpf Urine Bacteria (FEW) /hpf Urine Mucus (FEW) /hpf SARS-CoV-2 RNA (KYLER) (NEGATIVE) Med Orders - Current: Current Medications Docusate Sodium (Docusate Sodium 100 Mg Cap) 100 mg PO BID PRN PRN Reason: Constipation Enoxaparin Sodium (Enoxaparin 40 Mg/0.4 Ml Syringe) 40 mg SUBCUT DAILY [facility] Last Admin: 04/21/21 08:35 Dose: 40 mg Documented by: Sodium Chloride (Normal Saline) 1,000 mls @ 125 mls/hr IV ASDIRECTED [facility] Last Admin: 04/20/21 21:16 Dose: 125 mls/hr Documented by: Morphine Sulfate (Morphine 2 Mg/Ml Syringe) 2 mg IVPUSH Q2H PRN PRN Reason: Pain (severe 7-10) Stop: 04/21/21 13:08 Last Admin: 04/21/21 08:36 Dose: 2 mg Documented by: Ondansetron HCl (Ondansetron 4 Mg/2 Ml Sdv) 4 mg IV Q4H PRN PRN Reason: Nausea/Vomiting Last Admin: 04/20/21 14:18 Dose: 4 mg Documented by: Pantoprazole Sodium (Pantoprazole 40 Mg Vial) 40 mg IV Q12HR [facility] Last Admin: 04/21/21 08:36 Dose: 40 mg Documented by: Sodium Chloride (Sodium Chloride 0.9% 10 Ml Syringe) 10 ml FLUSH ASDIRECTED PRN PRN Reason: Keep Vein Open Last Admin: 04/20/21 10:41 Dose: 10 ml Documented by: Sodium Chloride (Sodium Chloride 0.9% 10 Ml Syringe) 10 ml FLUSH ASDIRECTED [facility] Last Admin: 04/20/21 11:44 Dose: 10 ml Documented by: Temazepam (Temazepam 15 Mg Cap) 15 mg PO BEDTIME PRN PRN Reason: Sleep Discontinued Medications Diatrizoate Meglum/Diatrizoate Sod (Diatrizoate Meglumine/Diatrizoate Sodium 37% 120 Ml Bottle) 120 ml PO ONETIME ONE Stop: 04/20/21 11:17 Last Admin: 04/20/21 11:44 Dose: 45 ml Documented by: Sodium Chloride (Normal Saline) 1,000 mls @ 999 mls/hr IV ONETIME ONE Stop: 04/20/21 11:04 Last Admin: 04/20/21 10:40 Dose: 999 mls/hr Documented by: Lactated Ringer's (Ringers, Lactated) 1,000 mls @ 999 mls/hr IV .BOLUS ONE Stop: 04/20/21 13:31 Last Admin: 04/20/21 12:39 Dose: 999 mls/hr Documented by: Iopamidol (Iopamidol 612 Mg/Ml 50 Ml Sdv) 50 ml IVPUSH ONETIME ONE Stop: 04/20/21 11:17 Last Admin: 04/20/21 11:44 Dose: 50 ml Documented by: Iopamidol (Iopamidol 612 Mg/Ml 100 Ml Bottle) 100 ml IVPUSH ONETIME ONE Stop: 04/20/21 11:17 Last Admin: 04/20/21 11:44 Dose: 100 ml Documented by: Morphine Sulfate (Morphine 4 Mg/Ml Syringe) 4 mg IVPUSH ONETIME ONE Stop: 04/20/21 10:05 Last Admin: 04/20/21 10:40 Dose: 4 mg Documented by: Ondansetron HCl (Ondansetron 4 Mg/2 Ml Sdv) 4 mg IVPUSH ONETIME ONE Stop: 04/20/21 10:05 Last Admin: 04/20/21 10:37 Dose: 4 mg Documented by: Pantoprazole Sodium (Pantoprazole 40 Mg Vial) 40 mg IVPUSH ONETIME ONE Stop: 04/20/21 12:33 Last Admin: 04/20/21 12:39 Dose: 40 mg Documented by: - Exam Quality Assessment: DVT Prophylaxis. No: Supplemental Oxygen, Urine Catheter General: Alert, Oriented, Cooperative, Sedated HEENT: Pupils Equal, Pupils Reactive, Mucous Membr. Moist/[place] Neck: Supple, Trachea Midline Lungs: Clear to Auscultation, Normal Respiratory Effort Cardiovascular: Regular Rate, Regular Rhythm GI/Abdominal Exam: Soft, No Distention, No Abnormal Bruit, Guarding, Tender (RUQ most prominent per the patient and then generalized exquisitely tender), Abnormal Bowel Sounds (Male) Exam: Deferred Back Exam: Normal Inspection, Full Range of Motion Extremities: Normal Inspection, Normal Range of Motion, Non-Tender, No Pedal Edema, Normal Capillary Refill Peripheral Pulses: 3+: Radial (L), Radial (R), Dorsalis Pedis (L), Dorsalis Pedi s (R) Skin: Warm, Dry, Intact Neurological: No New Focal Deficit Psy/Mental Status: Alert, Normal Affect, Normal Mood - Patient Data Lab Results Last 24 hrs: Laboratory Results - last 24 hr 04/20/21 04/20/21 04/20/21 Range/Units 10:35 10:35 10:35 WBC 23.34 H (4.23-9.07) K/mm3 RBC 5.39 (4.63-6.08) M/mm3 Hgb 15.4 (13.7-17.5) gm/dl Hct 46.9 (40.1-51.0) % MCV 87.0 (79.0-92.2) fl MCH 28.6 (25.7-32.2) pg MCHC 32.8 (32.2-35.5) g/dl RDW Std Deviation 45.8 H (35.1-43.9) fL Plt Count 308 (163-337) K/mm3 MPV 11.0 (9.4-12.3) fl Neut % (Auto) 84.9 H (34.0-67.9) % Lymph % (Auto) 6.4 L (21.8-53.1) % Beaver % (Auto) 8.3 (5.3-12.2) % Eos % (Auto) 0 L (0.8-7.0) Baso % (Auto) 0.1 (0.1-1.2) % Neut # (Auto) 19.79 H (1.78-5.38) K/mm3 Lymph # (Auto) 1.50 (1.32-3.57) K/mm3 Beaver # (Auto) 1.94 H (0.30-0.82) K/mm3 Eos # (Auto) 0.00 L (0.04-0.54) K/mm3 Baso # (Auto) 0.03 (0.01-0.08) K/mm3 Manual Slide Review Abnormal smear Sodium 137 (136-145) mEq/L Potassium 3.6 (3.5-5.1) mEq/L Chloride 97 L (98-107) mEq/L Carbon Dioxide 28 (21-32) mEq/L Anion Gap 15.6 H (5-15) BUN 18 (7-18) mg/dL Creatinine 1.1 (0.7-1.3) mg/dL Est Cr Clr Drug Dosing 105.34 mL/min Estimated GFR (MDRD) > 60 (>60) mL/min BUN/Creatinine Ratio 16.4 (14-18) Glucose 139 H (70-99) mg/dL Calcium 9.5 (8.5-10.1) mg/dL Total Bilirubin 2.4 H (0.2-1.0) mg/dL AST 147 H (15-37) U/L ALT 541 H (16-63) U/L Alkaline Phosphatase 240 H (46-116) U/L Troponin I < 0.017 (0.00-0.056) ng/mL C-Reactive Protein 5.2 H* (<1.0) mg/dL Total Protein 8.4 H (6.4-8.2) g/dl Albumin 4.3 (3.4-5.0) g/dl Globulin 4.1 gm/dL Albumin/Globulin Ratio 1.1 (1-2) Triglycerides 93 (<150) mg/dL Cholesterol 215 H (<200) mg/dL LDL Cholesterol Direct 127 H* (<100) mg/dL HDL Cholesterol 57.0 (40-59) mg/dL Lipase 2430 H (73-393) U/L Urine Color (Yellow) Urine Appearance (Clear) Urine pH (5.0-8.0) Ur Specific Stuart (1.005-1.030) Urine Protein (Negative) Urine Glucose (UA) (Negative) Urine Ketones (Negative) Urine Occult Blood (Negative) Urine Nitrite (Negative) Urine Bilirubin (Negative) Urine Urobilinogen (0.2-1.0) Ur Leukocyte Esterase (Negative) Urine RBC (0-5) /hpf Urine WBC (0-5) /hpf Ur Squamous Epith Cells (0-5) /hpf Urine Bacteria (FEW) /hpf Urine Mucus (FEW) /hpf SARS-CoV-2 RNA (KYLER) (NEGATIVE) 04/20/21 04/20/21 04/21/21 Range/Units 12:58 15:38 06:08 WBC 21.31 H (4.23-9.07) K/mm3 RBC 4.72 (4.63-6.08) M/mm3 Hgb 13.3 L D (13.7-17.5) gm/dl Hct 42.4 (40.1-51.0) % MCV 89.8 (79.0-92.2) fl MCH 28.2 (25.7-32.2) pg MCHC 31.4 L (32.2-35.5) g/dl RDW Std Deviation 46.0 H (35.1-43.9) fL Plt Count 238 (163-337) K/mm3 MPV 11.0 (9.4-12.3) fl Neut % (Auto) 82.2 H (34.0-67.9) % Lymph % (Auto) 7.5 L (21.8-53.1) % Beaver % (Auto) 9.8 (5.3-12.2) % Eos % (Auto) 0.2 L (0.8-7.0) Baso % (Auto) 0.1 (0.1-1.2) % Neut # (Auto) 17.51 H (1.78-5.38) K/mm3 Lymph # (Auto) 1.59 (1.32-3.57) K/mm3 Beaver # (Auto) 2.09 H (0.30-0.82) K/mm3 Eos # (Auto) 0.04 (0.04-0.54) K/mm3 Baso # (Auto) 0.03 (0.01-0.08) K/mm3 Manual Slide Review Abnormal smear Sodium (136-145) mEq/L Potassium (3.5-5.1) mEq/L Chloride (98-107) mEq/L Carbon Dioxide (21-32) mEq/L Anion Gap (5-15) BUN (7-18) mg/dL Creatinine (0.7-1.3) mg/dL Est Cr Clr Drug Dosing mL/min Estimated GFR (MDRD) (>60) mL/min BUN/Creatinine Ratio (14-18) Glucose (70-99) mg/dL Calcium (8.5-10.1) mg/dL Total Bilirubin (0.2-1.0) mg/dL AST (15-37) U/L ALT (16-63) U/L Alkaline Phosphatase (46-116) U/L Troponin I (0.00-0.056) ng/mL C-Reactive Protein (<1.0) mg/dL Total Protein (6.4-8.2) g/dl Albumin (3.4-5.0) g/dl Globulin gm/dL Albumin/Globulin Ratio (1-2) Triglycerides (<150) mg/dL Cholesterol (<200) mg/dL LDL Cholesterol Direct (<100) mg/dL HDL Cholesterol (40-59) mg/dL Lipase (73-393) U/L Urine Color Yellow (Yellow) Urine Appearance Clear (Clear) Urine pH 6.0 (5.0-8.0) Ur Specific Stuart 1.020 (1.005-1.030) Urine Protein 1+ H (Negative) Urine Glucose (UA) Negative (Negative) Urine Ketones Negative (Negative) Urine Occult Blood Trace-lysed H (Negative) Urine Nitrite Negative (Negative) Urine Bilirubin Negative (Negative) Urine Urobilinogen 0.2 (0.2-1.0) Ur Leukocyte Esterase Negative (Negative) Urine RBC 0-5 (0-5) /hpf Urine WBC 0-5 (0-5) /hpf Ur Squamous Epith Cells 0-5 (0-5) /hpf Urine Bacteria Few (FEW) /hpf Urine Mucus Few (FEW) /hpf SARS-CoV-2 RNA (KYLER) Negative (NEGATIVE) 04/21/21 Range/Units 06:08 WBC (4.23-9.07) K/mm3 RBC (4.63-6.08) M/mm3 Hgb (13.7-17.5) gm/dl Hct (40.1-51.0) % MCV (79.0-92.2) fl MCH (25.7-32.2) pg MCHC (32.2-35.5) g/dl RDW Std Deviation (35.1-43.9) fL Plt Count (163-337) K/mm3 MPV (9.4-12.3) fl Neut % (Auto) (34.0-67.9) % Lymph % (Auto) (21.8-53.1) % Beaver % (Auto) (5.3-12.2) % Eos % (Auto) (0.8-7.0) Baso % (Auto) (0.1-1.2) % Neut # (Auto) (1.78-5.38) K/mm3 Lymph # (Auto) (1.32-3.57) K/mm3 [place] # (Auto) (0.30-0.82) K/mm3 Eos # (Auto) (0.04-0.54) K/mm3 Baso # (Auto) (0.01-0.08) K/mm3 Manual Slide Review Sodium 142 (136-145) mEq/L Potassium 3.7 (3.5-5.1) mEq/L Chloride 105 (98-107) mEq/L Carbon Dioxide 27 (21-32) mEq/L Anion Gap 13.7 (5-15) BUN 14 (7-18) mg/dL Creatinine 0.9 (0.7-1.3) mg/dL Est Cr Clr Drug Dosing 128.74 mL/min Estimated GFR (MDRD) > 60 (>60) mL/min BUN/Creatinine Ratio 15.6 (14-18) Glucose 121 H (70-99) mg/dL Calcium 8.1 L (8.5-10.1) mg/dL Total Bilirubin 1.3 H (0.2-1.0) mg/dL AST 92 H (15-37) U/L ALT 372 H (16-63) U/L Alkaline Phosphatase 170 H (46-116) U/L Troponin I (0.00-0.056) ng/mL C-Reactive Protein (<1.0) mg/dL Total Protein 6.9 (6.4-8.2) g/dl Albumin 3.1 L (3.4-5.0) g/dl Globulin 3.8 gm/dL Albumin/Globulin Ratio 0.8 L (1-2) Triglycerides (<150) mg/dL Cholesterol (<200) mg/dL LDL Cholesterol Direct (<100) mg/dL HDL Cholesterol (40-59) mg/dL Lipase (73-393) U/L Urine Color (Yellow) Urine Appearance (Clear) Urine pH (5.0-8.0) Ur Specific Stuart (1.005-1.030) Urine Protein (Negative) Urine Glucose (UA) (Negative) Urine Ketones (Negative) Urine Occult Blood (Negative) Urine Nitrite (Negative) Urine Bilirubin (Negative) Urine Urobilinogen (0.2-1.0) Ur Leukocyte Esterase (Negative) Urine RBC (0-5) /hpf Urine WBC (0-5) /hpf Ur Squamous Epith Cells (0-5) /hpf Urine Bacteria (FEW) /hpf Urine Mucus (FEW) /hpf SARS-CoV-2 RNA (KYLER) (NEGATIVE) Result Diagrams: 04/21/21 06:08 04/21/21 06:08 Sepsis Event Note - Evaluation Sepsis Screening Result: No Definite Risk - Focused Exam Vital Signs: Vital Signs Temp Pulse Resp BP Pulse Ox 04/21/21 07:52 98.2 F 91 20 128/66 96 04/20/21 22:53 98.4 F 17 131/69 - Problem List & Annotations (1) Obesity (BMI 30.0-34.9) SNOMED Code(s): 673815162364217 Code(s): E66.9 - OBESITY, UNSPECIFIED Status: Chronic Priority: Medium Current Visit: No (2) Pancreatitis, acute SNOMED Code(s): 178372974 Code(s): K85.90 - ACUTE PANCREATITIS WITHOUT NECROSIS OR INFECTION, UNSP Status: Acute Priority: High Current Visit: Yes Qualifiers: Pancreatitis type: biliary Acute pancreatitis complication: unspecified Qualified Code(s): K85.10 - Biliary acute pancreatitis without necrosis or infection (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 SNOMED Code(s): 701584848 Code(s): I45.6 - PRE-EXCITATION SYNDROME Status: Chronic Priority: Medium Current Visit: Yes (4) Hyperlipidemia SNOMED Code(s): 67482465 Code(s): E78.5 - HYPERLIPIDEMIA, UNSPECIFIED Status: Acute Priority: Medium Current Visit: Yes Qualifiers: Hyperlipidemia type: unspecified Qualified Code(s): E78.5 - Hyperlipidemia, unspecified (5) Transaminitis SNOMED Code(s): 213302781, 660624207 Code(s): R74.01 - ELEVATION OF LEVELS OF LIVER TRANSAMINASE LEVELS Status: Acute Priority: High Current Visit: Yes (6) Hyperbilirubinemia SNOMED Code(s): 77635111 Code(s): E80.6 - OTHER DISORDERS OF BILIRUBIN METABOLISM Status: Acute Priority: High Current Visit: Yes (7) Gallstones SNOMED Code(s): 746304270 Code(s): K80.20 - CALCULUS OF GALLBLADDER W/O CHOLECYSTITIS W/O OBSTRUCTION Status: Acute Priority: High Current Visit: Yes - Problem List Review Problem List Initiated/Reviewed/Updated: Yes - Plan Plan:: 04/20/2021 The patient is a 20-year-old gentleman who has been admitted to inpatient for acute pancreatitis, likely biliary induced. An ultrasound of the patient's right upper quadrant has been ordered to the emergency department is currently pending. The patient will be kept on IV fluids of normal saline at 125 mL/h. He will be kept n.p.o. with the exception of ice chips. The patient will have his pain controlled with the use of IV narcotics. DVT prophylaxis will be done with 40 mg of Lovenox daily. If necessary, general surgery will be consulted. The patient also has repeat laboratory studies ordered to include a lipid pr ofile to help exclude hypertriglyceridemia as a cause of his pancreatitis. The patient will also be kept on telemetry due to his Xdlsu-Pmfazyxpl-Upida syndrome. As the patient is currently asymptomatic with the exception of the chest pain that he has been experiencing observation is indicated for treatment of his Gojse-Jgcvksnyr-Jcyph syndrome. If the patient goes into reentry tachycardia will consider verapamil. 04/21/2021 This is a 20-year-old male who presents to ED on 04/20/2021 with epigastric and retrosternal pain. She was reportedly diagnosed with Cgytd-Ydmszdnwh-Bbstk syndrome however is not seen cardiology. There is some [id number] as to whether or not the patient is aware of this. He was diagnosed with pancreatitis with a lipase of 2430. Triglycerides are 93, cholesterol 215, LDL 127, HDL 57. He is noted to have hyperbilirubinemia on admission and all of his liver enzymes were elevated. These have been trending downward and today his bilirubin is 1.3, AST 92, ALT 372, alkaline phosphatase 170. He does have a leukocytosis, which was present on admission, with a WBC then of 23.34 and today of 21.31. He has been requiring significant pain medications however his vital signs including oxygen saturations look good. He is on IV fluids. CT scan obtained yesterday showed inflammatory change either off the infra Alberto pancreatitis of duodenum. This caused an laboratory change within the anterior pararenal fascia extending into the pelvis on both sides. Please correlate with patient's symptoms and laboratory values. There is also atelectasis noted within the lung bases. Abdominal ultrasound was obtained showing cholelithiasis with no gallbladder wall thickening or biliary duct dilation. Pancreas completely obscured. Patient denies any alcohol intake and is triglycerides are low. Therefore there is questions over whether or not pancreatitis is caused by gallstone. Given his continued abdominal pain and cholelithiasis Dr. Martini, on- call surgeon is contacted and will see the patient later. She agrees with plan to hold IV antibiotics for now, keep patient n.p.o., and she will let us know if she has any suggestions after she sees the patient. We will keep him n.p.o. for now and continue IV fluids pending improvement in pain. <Jeffrey Watkins - Last Filed: 04/21/21 17:07> - Patient Data Vitals - Most Recent: Last Vital Signs Temp 36.6 C 04/21/21 13:56 Pulse 91 04/21/21 13:56 Resp 20 04/21/21 13:56 BP 129/71 04/21/21 13:56 Pulse Ox 98 04/21/21 13:56 I&O - Last 24 Hours: Intake & Output 04/21/21 04/21/21 04/21/21 06:59 14:59 22:59 Intake Total 1301 Output Total 600 Balance 701 Lab Results Last 24 Hours: Laboratory Results - last 24 hr 04/21/21 04/21/21 Range/Units 06:08 06:08 WBC 21.31 H (4.23-9.07) K/mm3 RBC 4.72 (4.63-6.08) M/mm3 Hgb 13.3 L D (13.7-17.5) gm/dl Hct 42.4 (40.1-51.0) % MCV 89.8 (79.0-92.2) fl MCH 28.2 (25.7-32.2) pg MCHC 31.4 L (32.2-35.5) g/dl RDW Std Deviation 46.0 H (35.1-43.9) fL Plt Count 238 (163-337) K/mm3 MPV 11.0 (9.4-12.3) fl Neut % (Auto) 82.2 H (34.0-67.9) % Lymph % (Auto) 7.5 L (21.8-53.1) % Beaver % (Auto) 9.8 (5.3-12.2) % Eos % (Auto) 0.2 L (0.8-7.0) Baso % (Auto) 0.1 (0.1-1.2) % Neut # (Auto) 17.51 H (1.78-5.38) K/mm3 Lymph # (Auto) 1.59 (1.32-3.57) K/mm3 Beaver # (Auto) 2.09 H (0.30-0.82) K/mm3 Eos # (Auto) 0.04 (0.04-0.54) K/mm3 Baso # (Auto) 0.03 (0.01-0.08) K/mm3 Manual Slide Review Abnormal smear Sodium 142 (136-145) mEq/L Potassium 3.7 (3.5-5.1) mEq/L Chloride 105 (98-107) mEq/L Carbon Dioxide 27 (21-32) mEq/L Anion Gap 13.7 (5-15) BUN 14 (7-18) mg/dL Creatinine 0.9 (0.7-1.3) mg/dL Est Cr Clr Drug Dosing 128.74 mL/min Estimated GFR (MDRD) > 60 (>60) mL/min BUN/Creatinine Ratio 15.6 (14-18) Glucose 121 H (70-99) mg/dL Calcium 8.1 L (8.5-10.1) mg/dL Total Bilirubin 1.3 H (0.2-1.0) mg/dL AST 92 H (15-37) U/L ALT 372 H (16-63) U/L Alkaline Phosphatase 170 H (46-116) U/L Total Protein 6.9 (6.4-8.2) g/dl Albumin 3.1 L (3.4-5.0) g/dl Globulin 3.8 gm/dL Albumin/Globulin Ratio 0.8 L (1-2) Med Orders - Current: Current Medications Docusate Sodium (Docusate Sodium 100 Mg Cap) 100 mg PO BID PRN PRN Reason: Constipation Enoxaparin Sodium (Enoxaparin 40 Mg/0.4 Ml Syringe) 40 mg SUBCUT DAILY [facility] Last Admin: 04/21/21 08:35 Dose: 40 mg Documented by: Sodium Chloride (Normal Saline) 1,000 mls @ 125 mls/hr IV ASDIRECTED [facility] Last Admin: 04/21/21 15:19 Dose: 125 mls/hr Documented by: Morphine Sulfate (Morphine 2 Mg/Ml Syringe) 2 mg IVPUSH Q2H PRN PRN Reason: Pain (severe 7-10) Last Admin: 04/21/21 14:25 Dose: 2 mg Documented by: Ondansetron HCl (Ondansetron 4 Mg/2 Ml Sdv) 4 mg IV Q4H PRN PRN Reason: Nausea/Vomiting Last Admin: 04/20/21 14:18 Dose: 4 mg Documented by: Pantoprazole Sodium (Pantoprazole 40 Mg Vial) 40 mg IV Q12HR [facility] Last Admin: 04/21/21 08:36 Dose: 40 mg Documented by: Sodium Chloride (Sodium Chloride 0.9% 10 Ml Syringe) 10 ml FLUSH ASDIRECTED PRN PRN Reason: Keep Vein Open Last Admin: 04/20/21 10:41 Dose: 10 ml Documented by: Temazepam (Temazepam 15 Mg Cap) 15 mg PO BEDTIME PRN PRN Reason: Sleep Discontinued Medications Diatrizoate Meglum/Diatrizoate Sod (Diatrizoate Meglumine/Diatrizoate Sodium 37% 120 Ml Bottle) 120 ml PO ONETIME ONE Stop: 04/20/21 11:17 Last Admin: 04/20/21 11:44 Dose: 45 ml Documented by: Sodium Chloride (Normal Saline) 1,000 mls @ 999 mls/hr IV ONETIME ONE Stop: 04/20/21 11:04 Last Admin: 04/20/21 10:40 Dose: 999 mls/hr Documented by: Lactated Ringer's (Ringers, Lactated) 1,000 mls @ 999 mls/hr IV .BOLUS ONE Stop: 04/20/21 13:31 Last Admin: 04/20/21 12:39 Dose: 999 mls/hr Documented by: Iopamidol (Iopamidol 612 Mg/Ml 50 Ml Sdv) 50 ml IVPUSH ONETIME ONE Stop: 04/20/21 11:17 Last Admin: 04/20/21 11:44 Dose: 50 ml Documented by: Iopamidol (Iopamidol 612 Mg/Ml 100 Ml Bottle) 100 ml IVPUSH ONETIME ONE Stop: 04/20/21 11:17 Last Admin: 04/20/21 11:44 Dose: 100 ml Documented by: Morphine Sulfate (Morphine 4 Mg/Ml Syringe) 4 mg IVPUSH ONETIME ONE Stop: 04/20/21 10:05 Last Admin: 04/20/21 10:40 Dose: 4 mg Documented by: Morphine Sulfate (Morphine 2 Mg/Ml Syringe) 2 mg IVPUSH Q2H PRN PRN Reason: Pain (severe 7-10) Stop: 04/21/21 13:08 Last Admin: 04/21/21 11:37 Dose: 2 mg Documented by: Ondansetron HCl (Ondansetron 4 Mg/2 Ml Sdv) 4 mg IVPUSH ONETIME ONE Stop: 04/20/21 10:05 Last Admin: 04/20/21 10:37 Dose: 4 mg Documented by: Pantoprazole Sodium (Pantoprazole 40 Mg Vial) 40 mg IVPUSH ONETIME ONE Stop: 04/20/21 12:33 Last Admin: 04/20/21 12:39 Dose: 40 mg Documented by: Sodium Chloride (Sodium Chloride 0.9% 10 Ml Syringe) 10 ml FLUSH ASDIRECTED ELOINA Last Admin: 04/20/21 11:44 Dose: 10 ml Documented by: - Patient Data Lab Results Last 24 hrs: Laboratory Results - last 24 hr 04/21/21 04/21/21 Range/Units 06:08 06:08 WBC 21.31 H (4.23-9.07) K/mm3 RBC 4.72 (4.63-6.08) M/mm3 Hgb 13.3 L D (13.7-17.5) gm/dl Hct 42.4 (40.1-51.0) % MCV 89.8 (79.0-92.2) fl MCH 28.2 (25.7-32.2) pg MCHC 31.4 L (32.2-35.5) g/dl RDW Std Deviation 46.0 H (35.1-43.9) fL Plt Count 238 (163-337) K/mm3 MPV 11.0 (9.4-12.3) fl Neut % (Auto) 82.2 H (34.0-67.9) % Lymph % (Auto) 7.5 L (21.8-53.1) % Beaver % (Auto) 9.8 (5.3-12.2) % Eos % (Auto) 0.2 L (0.8-7.0) Baso % (Auto) 0.1 (0.1-1.2) % Neut # (Auto) 17.51 H (1.78-5.38) K/mm3 Lymph # (Auto) 1.59 (1.32-3.57) K/mm3 Beaver # (Auto) 2.09 H (0.30-0.82) K/mm3 Eos # (Auto) 0.04 (0.04-0.54) K/mm3 Baso # (Auto) 0.03 (0.01-0.08) K/mm3 Manual Slide Review Abnormal smear Sodium 142 (136-145) mEq/L Potassium 3.7 (3.5-5.1) mEq/L Chloride 105 (98-107) mEq/L Carbon Dioxide 27 (21-32) mEq/L Anion Gap 13.7 (5-15) BUN 14 (7-18) mg/dL Creatinine 0.9 (0.7-1.3) mg/dL Est Cr Clr Drug Dosing 128.74 mL/min Estimated GFR (MDRD) > 60 (>60) mL/min BUN/Creatinine Ratio 15.6 (14-18) Glucose 121 H (70-99) mg/dL Calcium 8.1 L (8.5-10.1) mg/dL Total Bilirubin 1.3 H (0.2-1.0) mg/dL AST 92 H (15-37) U/L ALT 372 H (16-63) U/L Alkaline Phosphatase 170 H (46-116) U/L Total Protein 6.9 (6.4-8.2) g/dl Albumin 3.1 L (3.4-5.0) g/dl Globulin 3.8 gm/dL Albumin/Globulin Ratio 0.8 L (1-2) Result Diagrams: 04/21/21 06:08 04/21/21 06:08 Sepsis Event Note - Focused Exam Vital Signs: Vital Signs Temp Pulse Resp BP Pulse Ox 04/21/21 13:56 36.6 C 91 20 129/71 98 04/21/21 07:52 36.8 C 91 20 128/66 96 - Problem List & Annotations (1) Pancreatitis, acute SNOMED Code(s): 948553428 Code(s): K85.90 - ACUTE PANCREATITIS WITHOUT NECROSIS OR INFECTION, UNSP Status: Acute Priority: High Current Visit: Yes Qualifiers: Pancreatitis type: biliary Acute pancreatitis complication: unspecified Qualified Code(s): K85.10 - Biliary acute pancreatitis without necrosis or infection (2) Leukocytosis, unspecified SNOMED Code(s): 168929001, 063632169 Code(s): D72.829 - ELEVATED WHITE BLOOD CELL COUNT, UNSPECIFIED Status: Acute Priority: High Current Visit: Yes Qualifiers: Leukocytosis type: bandemia Qualified Code(s): D72.825 - Bandemia (3) Pleurisy SNOMED Code(s): 058747897 Code(s): R09.1 - PLEURISY Status: Acute Priority: High Current Visit: Yes (4) 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 I have reviewed plan as outlined by him. I agree with the orders as outlined by him. Please see orders.
[2021-04-21] MEDS: Sodium Chloride 0.9% 1,000 ML IV SCH (15:19)
--- NOTE | 2021-04-21 16:06 | PCM.CONS ---
H&P History of Present Illness - General Date of Service: 04/21/21 Admit Problem/Dx: Admission Diagnosis/Problem Admission Diagnosis/Problem Pancreatitis due to biliary obstruction Source of Information: Patient, Provider History Limitations: Reports: No Limitations - History of Present Illness Initial Comments - Free Text/Narative: The patient is a 20 y/o male who had onset of substernal lower chest pain/ epigastric abdominal pain 4 days ago while at work. He presented to the ED 1 day ago, and was admitted for findings of pancreatitis. He reports the pain has improved since admission. He was not drinking and had no extreme triglyceridemia. He does have findings of cholelithiasis. He denies any previous episodes. He reports last BM was 6 days ago. Epigastric Pain Score (Numeric/FACES): 7 - Related Data Allergies/Adverse Reactions: Allergies Allergy/AdvReac Type Severity Reaction Status Date / Time No Known Allergies Allergy Verified 04/20/21 09:23 Home Medications: Home Meds . [No Known Home Meds] 04/20/21 [History] Past Medical History HEENT History: Reports: None Cardiovascular History: Reports: Other (See Below) Other Cardiovascular History: WPW Respiratory History: Reports: None Gastrointestinal History: Reports: None Genitourinary History: Reports: None Musculoskeletal History: Reports: None Neurological History: Reports: None Psychiatric History: Reports: None Endocrine/Metabolic History: Reports: Obesity/BMI 30+ Hematologic History: Reports: None Immunologic History: Reports: None Oncologic (Cancer) History: Reports: None Dermatologic History: Reports: None - Infectious Disease History Infectious Disease History: Reports: None - Past Surgical History HEENT Surgical History: Reports: Tonsillectomy Social & Family History - Tobacco Use Tobacco Use Status *Q: Never Tobacco User - Caffeine Use Caffeine Use: Reports: Soda - Recreational Drug Use Recreational Drug Use: No - Living Situation & Occupation Living situation: Reports: Single Occupation: Employed H&P Review of Systems - Review of Systems: Review Of Systems: See Below General: Reports: No Symptoms HEENT: Reports: No Symptoms Pulmonary: Reports: No Symptoms Cardiovascular: Reports: Chest Pain Gastrointestinal: Reports: Abdominal Pain Genitourinary: Reports: No Symptoms Musculoskeletal: Reports: No Symptoms Skin: Reports: No Symptoms Psychiatric: Reports: No Symptoms Neurological: Reports: No Symptoms Hematologic/Lymphatic: Reports: No Symptoms Exam - Exam Exam: See Below - Vital Signs Vital Signs: Last Vital Signs Temp 36.6 C 04/21/21 13:56 Pulse 91 04/21/21 13:56 Resp 20 04/21/21 13:56 BP 129/71 04/21/21 13:56 Pulse Ox 98 04/21/21 13:56 Weight: 95.889 kg - Exam Quality Assessment: No: Supplemental Oxygen General: Alert HEENT: Other (pt kept eyes closed throughout the exam) Neck: Supple Lungs: Normal Respiratory Effort GI/Abdominal Exam: Soft, Distended (mild), Tender (in RUQ and periumbilical are) Peripheral Pulses: 2+: Dorsalis Pedis (L), Dorsalis Pedis (R) Skin: Warm, Dry, Intact Neuro Extensive - Mental Status: Oriented x3, Normal Mood/Affect Psychiatric: Normal Affect - Patient Data Lab Results Last 24 hrs: Laboratory Results - last 24 hr 04/20/21 04/21/21 04/21/21 Range/Units 15:38 06:08 06:08 WBC 21.31 H (4.23-9.07) K/mm3 RBC 4.72 (4.63-6.08) M/mm3 Hgb 13.3 L D (13.7-17.5) gm/dl Hct 42.4 (40.1-51.0) % MCV 89.8 (79.0-92.2) fl MCH 28.2 (25.7-32.2) pg MCHC 31.4 L (32.2-35.5) g/dl RDW Std Deviation 46.0 H (35.1-43.9) fL Plt Count 238 (163-337) K/mm3 MPV 11.0 (9.4-12.3) fl Neut % (Auto) 82.2 H (34.0-67.9) % Lymph % (Auto) 7.5 L (21.8-53.1) % Hawkins % (Auto) 9.8 (5.3-12.2) % Eos % (Auto) 0.2 L (0.8-7.0) Baso % (Auto) 0.1 (0.1-1.2) % Neut # (Auto) 17.51 H (1.78-5.38) K/mm3 Lymph # (Auto) 1.59 (1.32-3.57) K/mm3 Hawkins # (Auto) 2.09 H (0.30-0.82) K/mm3 Eos # (Auto) 0.04 (0.04-0.54) K/mm3 Baso # (Auto) 0.03 (0.01-0.08) K/mm3 Manual Slide Review Abnormal smear Sodium 142 (136-145) mEq/L Potassium 3.7 (3.5-5.1) mEq/L Chloride 105 (98-107) mEq/L Carbon Dioxide 27 (21-32) mEq/L Anion Gap 13.7 (5-15) BUN 14 (7-18) mg/dL Creatinine 0.9 (0.7-1.3) mg/dL Est Cr Clr Drug Dosing 128.74 mL/min Estimated GFR (MDRD) > 60 (>60) mL/min BUN/Creatinine Ratio 15.6 (14-18) Glucose 121 H (70-99) mg/dL Calcium 8.1 L (8.5-10.1) mg/dL Total Bilirubin 1.3 H (0.2-1.0) mg/dL AST 92 H (15-37) U/L ALT 372 H (16-63) U/L Alkaline Phosphatase 170 H (46-116) U/L Total Protein 6.9 (6.4-8.2) g/dl Albumin 3.1 L (3.4-5.0) g/dl Globulin 3.8 gm/dL Albumin/Globulin Ratio 0.8 L (1-2) Urine RBC 0-5 (0-5) /hpf Urine WBC 0-5 (0-5) /hpf Ur Squamous Epith Cells 0-5 (0-5) /hpf Urine Bacteria Few (FEW) /hpf Urine Mucus Few (FEW) /hpf Result Diagrams: 04/21/21 06:08 04/21/21 06:08 Sepsis Event Note - Evaluation Sepsis Screening Result: No Definite Risk - Focused Exam Vital Signs: Vital Signs Temp Pulse Resp BP Pulse Ox 04/21/21 13:56 36.6 C 91 20 129/71 98 04/21/21 07:52 36.8 C 91 20 128/66 96 Consult PN Assessment/Plan Procedures: Procedures ASSAY OF TROPONIN QUANT (03/20/21) COMPLETE CBC W/AUTO DIFF WBC (03/20/21) COMPREHEN METABOLIC PANEL (03/20/21) ELECTROCARDIOGRAM TRACING (03/20/21) EMERGENCY DEPT VISIT (03/20/21) FIBRIN DEGRADATION QUANT (03/20/21) ROUTINE VENIPUNCTURE (03/20/21) X-RAY EXAM CHEST 1 VIEW (03/20/21) (1) Gallstones SNOMED Code(s): 276834770 Code(s): K80.20 - CALCULUS OF GALLBLADDER W/O CHOLECYSTITIS W/O OBSTRUCTION Priority: High Current Visit: Yes (2) Pancreatitis, acute SNOMED Code(s): 802907619 Code(s): K85.90 - ACUTE PANCREATITIS WITHOUT NECROSIS OR INFECTION, UNSP Priority: High Current Visit: Yes Qualifiers: Pancreatitis type: biliary Acute pancreatitis complication: unspecified Qualified Code(s): K85.10 - Biliary acute pancreatitis without necrosis or infection (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 Izabel Youngblood MD General surgery
[2021-04-22] MEDS: Sodium Chloride 0.9% 1,000 ML IV SCH (01:24)
[2021-04-22] MEDS: Morphine 2 MG/ML SYRINGE IVPUSH PRN ×2 (01:27→05:19)
--- NOTE | 2021-04-22 07:25 | PCM.PN ---
<Eulalio Molina - Last Filed: 04/22/21 11:31> - General Info Date of Service: 04/22/21 Admission Dx/Problem (Free Text): Admission Diagnosis/Problem Admission Diagnosis/Problem Pancreatitis due to biliary obstruction Functional Status: Reports: Pain Controlled ("almost gone" ), Tolerating Diet (clear liquids ), Ambulating, Urinating, Incentive Spirometry. Denies: New Symptoms - Review of Systems General: Reports: No Symptoms, Weakness (improved ), Fatigue. Denies: Fever, Malaise, Chills HEENT: Reports: No Symptoms. Denies: Headaches, Sore Throat Pulmonary: Reports: No Symptoms. Denies: Sputum, Wheezing Cardiovascular: Reports: No Symptoms. Denies: Chest Pain, Palpitations, Dyspnea on Exertion, Edema Gastrointestinal: Reports: Abdominal Pain (epigastric now and minimal ). Denies: Constipation, Diarrhea, Nausea, Vomiting Genitourinary: Reports: No Symptoms. Denies: Pain Musculoskeletal: Reports: No Symptoms Skin: Reports: No Symptoms. Denies: Cyanosis Neurological: Reports: No Symptoms. Denies: Confusion, Pre-Existing Deficit, Difficulty Walking, Gait Disturbance Psychiatric: Reports: No Symptoms - Patient Data Vitals - Most Recent: Last Vital Signs Temp 98.8 F 04/22/21 03:13 Pulse 85 04/22/21 03:13 Resp 16 04/22/21 03:13 BP 129/63 04/22/21 03:13 Pulse Ox 96 04/22/21 03:13 Weight - Most Recent: 97.296 kg I&O - Last 24 Hours: Intake & Output 04/21/21 04/22/21 04/22/21 22:59 06:59 14:59 Intake Total 1600 Output Total 400 Balance 1600 -400 Lab Results Last 24 Hours: Laboratory Results - last 24 hr 04/22/21 04/22/21 Range/Units 04:52 04:52 WBC 16.96 H (4.23-9.07) K/mm3 RBC 4.37 L (4.63-6.08) M/mm3 Hgb 12.5 L (13.7-17.5) gm/dl Hct 39.6 L (40.1-51.0) % MCV 90.6 (79.0-92.2) fl MCH 28.6 (25.7-32.2) pg MCHC 31.6 L (32.2-35.5) g/dl RDW Std Deviation 46.0 H (35.1-43.9) fL Plt Count 243 (163-337) K/mm3 MPV 12.0 (9.4-12.3) fl Neut % (Auto) 73.4 H (34.0-67.9) % Lymph % (Auto) 13.2 L (21.8-53.1) % Pickett % (Auto) 12.3 H (5.3-12.2) % Eos % (Auto) 0.7 L (0.8-7.0) Baso % (Auto) 0.2 (0.1-1.2) % Neut # (Auto) 12.44 H (1.78-5.38) K/mm3 Lymph # (Auto) 2.24 (1.32-3.57) K/mm3 Pickett # (Auto) 2.08 H (0.30-0.82) K/mm3 Eos # (Auto) 0.12 (0.04-0.54) K/mm3 Baso # (Auto) 0.04 (0.01-0.08) K/mm3 Manual Slide Review Abnormal smear Sodium 142 (136-145) mEq/L Potassium 3.5 (3.5-5.1) mEq/L Chloride 106 (98-107) mEq/L Carbon Dioxide 28 (21-32) mEq/L Anion Gap 11.5 (5-15) BUN 15 (7-18) mg/dL Creatinine 0.8 (0.7-1.3) mg/dL Est Cr Clr Drug Dosing 144.84 mL/min Estimated GFR (MDRD) > 60 (>60) mL/min BUN/Creatinine Ratio 18.8 H (14-18) Glucose 102 H (70-99) mg/dL Calcium 8.1 L (8.5-10.1) mg/dL Magnesium 2.0 (1.8-2.4) mg/dL Total Bilirubin 1.1 H (0.2-1.0) mg/dL AST 50 H (15-37) U/L ALT 259 H (16-63) U/L Alkaline Phosphatase 138 H (46-116) U/L C-Reactive Protein 16.3 H* (<1.0) mg/dL Total Protein 6.7 (6.4-8.2) g/dl Albumin 2.8 L (3.4-5.0) g/dl Globulin 3.9 gm/dL Albumin/Globulin Ratio 0.7 L (1-2) Med Orders - Current: Current Medications Docusate Sodium (Docusate Sodium 100 Mg Cap) 100 mg PO BID PRN PRN Reason: Constipation Enoxaparin Sodium (Enoxaparin 40 Mg/0.4 Ml Syringe) 40 mg SUBCUT DAILY [facility] Last Admin: 04/21/21 08:35 Dose: 40 mg Documented by: Sodium Chloride (Normal Saline) 1,000 mls @ 125 mls/hr IV ASDIRECTED [facility] Last Admin: 04/22/21 01:24 Dose: 125 mls/hr Documented by: Morphine Sulfate (Morphine 2 Mg/Ml Syringe) 2 mg IVPUSH Q2H PRN PRN Reason: Pain (severe 7-10) Last Admin: 04/22/21 05:19 Dose: 2 mg Documented by: Ondansetron HCl (Ondansetron 4 Mg/2 Ml Sdv) 4 mg IV Q4H PRN PRN Reason: Nausea/Vomiting Last Admin: 04/20/21 14:18 Dose: 4 mg Documented by: Pantoprazole Sodium (Pantoprazole 40 Mg Vial) 40 mg IV Q12HR [facility] Last Admin: 04/21/21 21:05 Dose: 40 mg Documented by: Sodium Chloride (Sodium Chloride 0.9% 10 Ml Syringe) 10 ml FLUSH ASDIRECTED PRN PRN Reason: Keep Vein Open Last Admin: 04/20/21 10:41 Dose: 10 ml Documented by: Temazepam (Temazepam 15 Mg Cap) 15 mg PO BEDTIME PRN PRN Reason: Sleep Last Admin: 04/22/21 01:24 Dose: 15 mg Documented by: Discontinued Medications Diatrizoate Meglum/Diatrizoate Sod (Diatrizoate Meglumine/Diatrizoate Sodium 37% 120 Ml Bottle) 120 ml PO ONETIME ONE Stop: 04/20/21 11:17 Last Admin: 04/20/21 11:44 Dose: 45 ml Documented by: Sodium Chloride (Normal Saline) 1,000 mls @ 999 mls/hr IV ONETIME ONE Stop: 04/20/21 11:04 Last Admin: 04/20/21 10:40 Dose: 999 mls/hr Documented by: Lactated Ringer's (Ringers, Lactated) 1,000 mls @ 999 mls/hr IV .BOLUS ONE Stop: 04/20/21 13:31 Last Admin: 04/20/21 12:39 Dose: 999 mls/hr Documented by: Iopamidol (Iopamidol 612 Mg/Ml 50 Ml Sdv) 50 ml IVPUSH ONETIME ONE Stop: 04/20/21 11:17 Last Admin: 04/20/21 11:44 Dose: 50 ml Documented by: Iopamidol (Iopamidol 612 Mg/Ml 100 Ml Bottle) 100 ml IVPUSH ONETIME ONE Stop: 04/20/21 11:17 Last Admin: 04/20/21 11:44 Dose: 100 ml Documented by: Morphine Sulfate (Morphine 4 Mg/Ml Syringe) 4 mg IVPUSH ONETIME ONE Stop: 04/20/21 10:05 Last Admin: 04/20/21 10:40 Dose: 4 mg Documented by: Morphine Sulfate (Morphine 2 Mg/Ml Syringe) 2 mg IVPUSH Q2H PRN PRN Reason: Pain (severe 7-10) Stop: 04/21/21 13:08 Last Admin: 04/21/21 11:37 Dose: 2 mg Documented by: Ondansetron HCl (Ondansetron 4 Mg/2 Ml Sdv) 4 mg IVPUSH ONETIME ONE Stop: 04/20/21 10:05 Last Admin: 04/20/21 10:37 Dose: 4 mg Documented by: Pantoprazole Sodium (Pantoprazole 40 Mg Vial) 40 mg IVPUSH ONETIME ONE Stop: 04/20/21 12:33 Last Admin: 04/20/21 12:39 Dose: 40 mg Documented by: Sodium Chloride (Sodium Chloride 0.9% 10 Ml Syringe) 10 ml FLUSH ASDIRECTED [facility] Last Admin: 04/20/21 11:44 Dose: 10 ml Documented by: - Exam Quality Assessment: DVT Prophylaxis. No: Supplemental Oxygen, Urine Catheter General: Alert, Oriented, Cooperative, No Acute Distress HEENT: Pupils Equal, Pupils Reactive, Mucous Membr. Moist/Hart Neck: Supple, Trachea Midline Lungs: Clear to Auscultation, Normal Respiratory Effort Cardiovascular: Regular Rate, Regular Rhythm GI/Abdominal Exam: Normal Bowel Sounds, Soft, No Distention, Tender (Minimal over epigastric region ). No: Guarding, Rigid, Rebound (Male) Exam: Deferred Extremities: Normal Inspection, Normal Range of Motion, Non-Tender, No Pedal Edema, Normal Capillary Refill Peripheral Pulses: 2+: Radial (L), Radial (R), Dorsalis Pedis (L), Dorsalis Pedis (R) Skin: Warm, Dry, Intact Neurological: No New Focal Deficit Psy/Mental Status: Alert, Normal Affect, Normal Mood - Patient Data Lab Results Last 24 hrs: Laboratory Results - last 24 hr 04/22/21 04/22/21 Range/Units 04:52 04:52 WBC 16.96 H (4.23-9.07) K/mm3 RBC 4.37 L (4.63-6.08) M/mm3 Hgb 12.5 L (13.7-17.5) gm/dl Hct 39.6 L (40.1-51.0) % MCV 90.6 (79.0-92.2) fl MCH 28.6 (25.7-32.2) pg MCHC 31.6 L (32.2-35.5) g/dl RDW Std Deviation 46.0 H (35.1-43.9) fL Plt Count 243 (163-337) K/mm3 MPV 12.0 (9.4-12.3) fl Neut % (Auto) 73.4 H (34.0-67.9) % Lymph % (Auto) 13.2 L (21.8-53.1) % Pickett % (Auto) 12.3 H (5.3-12.2) % Eos % (Auto) 0.7 L (0.8-7.0) Baso % (Auto) 0.2 (0.1-1.2) % Neut # (Auto) 12.44 H (1.78-5.38) K/mm3 Lymph # (Auto) 2.24 (1.32-3.57) K/mm3 Pickett # (Auto) 2.08 H (0.30-0.82) K/mm3 Eos # (Auto) 0.12 (0.04-0.54) K/mm3 Baso # (Auto) 0.04 (0.01-0.08) K/mm3 Manual Slide Review Abnormal smear Sodium 142 (136-145) mEq/L Potassium 3.5 (3.5-5.1) mEq/L Chloride 106 (98-107) mEq/L Carbon Dioxide 28 (21-32) mEq/L Anion Gap 11.5 (5-15) BUN 15 (7-18) mg/dL Creatinine 0.8 (0.7-1.3) mg/dL Est Cr Clr Drug Dosing 144.84 mL/min Estimated GFR (MDRD) > 60 (>60) mL/min BUN/Creatinine Ratio 18.8 H (14-18) Glucose 102 H (70-99) mg/dL Calcium 8.1 L (8.5-10.1) mg/dL Magnesium 2.0 (1.8-2.4) mg/dL Total Bilirubin 1.1 H (0.2-1.0) mg/dL AST 50 H (15-37) U/L ALT 259 H (16-63) U/L Alkaline Phosphatase 138 H (46-116) U/L C-Reactive Protein 16.3 H* (<1.0) mg/dL Total Protein 6.7 (6.4-8.2) g/dl Albumin 2.8 L (3.4-5.0) g/dl Globulin 3.9 gm/dL Albumin/Globulin Ratio 0.7 L (1-2) Result Diagrams: 04/22/21 04:52 04/22/21 04:52 Sepsis Event Note - Evaluation Sepsis Screening Result: No Definite Risk - Focused Exam Vital Signs: Vital Signs Temp Pulse Resp BP Pulse Ox 04/22/21 03:13 98.8 F 85 16 129/63 96 04/22/21 00:23 98.8 F 88 16 137/61 97 04/21/21 20:15 98.8 F 94 16 124/51 L 99 - Problem List & Annotations (1) Obesity (BMI 30.0-34.9) SNOMED Code(s): 121274146427550 Code(s): E66.9 - OBESITY, UNSPECIFIED Status: Chronic Priority: Medium Current Visit: No (2) Pancreatitis, acute SNOMED Code(s): 775840289 Code(s): K85.90 - ACUTE PANCREATITIS WITHOUT NECROSIS OR INFECTION, UNSP Status: Acute Priority: High Current Visit: Yes Qualifiers: Pancreatitis type: biliary Acute pancreatitis complication: unspecified Qualified Code(s): K85.10 - Biliary acute pancreatitis without necrosis or infection (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 SNOMED Code(s): 960137103 Code(s): I45.6 - PRE-EXCITATION SYNDROME Status: Chronic Priority: Medium Current Visit: Yes (4) Hyperlipidemia SNOMED Code(s): 21026285 Code(s): E78.5 - HYPERLIPIDEMIA, UNSPECIFIED Status: Acute Priority: Medium Current Visit: Yes Qualifiers: Hyperlipidemia type: unspecified Qualified Code(s): E78.5 - Hyperlipidemia, unspecified (5) Transaminitis SNOMED Code(s): 921532589, 405479893 Code(s): R74.01 - ELEVATION OF LEVELS OF LIVER TRANSAMINASE LEVELS Status: Acute Priority: High Current Visit: Yes (6) Hyperbilirubinemia SNOMED Code(s): 63095375 Code(s): E80.6 - OTHER DISORDERS OF BILIRUBIN METABOLISM Status: Acute Priority: High Current Visit: Yes (7) Gallstones SNOMED Code(s): 129435311 Code(s): K80.20 - CALCULUS OF GALLBLADDER W/O CHOLECYSTITIS W/O OBSTRUCTION Status: Acute Priority: High Current Visit: Yes - Problem List Review Problem List Initiated/Reviewed/Updated: Yes - My Orders Last 24 Hours: My Active Orders 04/21/21 08:52 Consult to [facility] [CONS] Routine 04/21/21 09:49 Consult to Physician [CONS] Routine 04/21/21 09:50 Notify Provider Consults [RC] ASDIRECTED 04/23/21 05:11 CBC WITH AUTO DIFF [HEME] AM CMP [COMPREHENSIVE METABOLIC PN,CMP] [CHEM] AM CRP [C-REACTIVE PROTEIN] [CHEM] AM MAGNESIUM [CHEM] AM 04/24/21 05:11 CBC WITH AUTO DIFF [HEME] AM CMP [COMPREHENSIVE METABOLIC PN,CMP] [CHEM] AM CRP [C-REACTIVE PROTEIN] [CHEM] AM MAGNESIUM [CHEM] AM 04/25/21 05:11 CBC WITH AUTO DIFF [HEME] AM CMP [COMPREHENSIVE METABOLIC PN,CMP] [CHEM] AM CRP [C-REACTIVE PROTEIN] [CHEM] AM MAGNESIUM [CHEM] AM - Plan Plan:: 04/20/2021 The patient is a 20-year-old gentleman who has been admitted to inpatient for acute pancreatitis, likely biliary induced. An ultrasound of the patient's right upper quadrant has been ordered to the emergency department is currently pending. The patient will be kept on IV fluids of normal saline at 125 mL/h. He will be kept n.p.o. with the exception of ice chips. The patient will have his pain controlled with the use of IV narcotics. DVT prophylaxis will be done with 40 mg of Lovenox daily. If necessary, general surgery will be consulted. The patient also has repeat laboratory studies ordered to include a lipid profile to help exclude hypertriglyceridemia as a cause of his pancreatitis. 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 As the patient is currently asymptomatic with the exception of the chest pain that he has been experiencing observation is indicated for treatment of his Bqllr-Mvouymixc-Gnywj syndrome. If the patient goes into reentry tachycardia will consider verapamil. 04/21/2021 This is a 20-year-old male who presents to ED on 04/20/2021 with epigastric and r etrosternal pain. She was reportedly diagnosed with Rskio-Rwliwlmil-Hnnrj syndrome however is not seen cardiology. There is some [id number] as to whether or not the patient is aware of this. He was diagnosed with pancreatitis with a lipase of 2430. Triglycerides are 93, cholesterol 215, LDL 127, HDL 57. He is noted to have hyperbilirubinemia on admission and all of his liver enzymes were elevated. These have been trending downward and today his bilirubin is 1.3, AST 92, ALT 372, alkaline phosphatase 170. He does have a leukocytosis, which was present on admission, with a WBC then of 23.34 and today of 21.31. He has been requiring significant pain medications however his vital signs including oxygen saturations look good. He is on IV fluids. CT scan obtained yesterday showed inflammatory change either off the infra Alberto pancreatitis of duodenum. This caused an laboratory change within the anterior pararenal fascia extending into the pelvis on both sides. Please correlate with patient's symptoms and laboratory values. There is also atelectasis noted within the lung bases. Abdominal ultrasound was obtained showing cholelithiasis with no gallbladder wall thickening or biliary duct dilation. Pancreas completely obscured. Patient denies any alcohol intake and is triglycerides are low. Therefore there is questions over whether or not pancreatitis is caused by gallstone. Given his continued abdominal pain and cholelithiasis Dr. Martini, on-call surgeon is contacted and will see the patient later. She agrees with plan to hold IV antibiotics for now, keep patient n.p.o., and she will let us know if she has any suggestions after she sees the patient. We will keep him n.p.o. for now and continue IV fluids pending improvement in pain. 04/22/2021 This is a 20-year-old male who was admitted for pancreatitis. He is found to have gallstones but no signs of pancreatitis. Dr. Martini, general surgeon was brought on board and does feel that the patient will need to have his gallbladder out but likely not emergently. 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 He will need cardiac work-up and should follow-up with cardiology after discharge. Dr. Mendez would therefore like to see the patient after discharge for planned outpatient cholecystectomy. He does not drink and his triglycerides were within normal limits so it is believed that his pancreatitis was caused from a biliary source. He has been doing well today. His pain is greatly improved and now just over the epigastric area him. Leukocytosis is improving with a WBC of 16.97. Hemoglobin is 12.5 but this is likely somewhat delusional due to patient receiving IV fluids. Potassium is down to 3.5 and sodium is 142. GFR is greater than 60. Glucose was 102. Given patient's hyperglycemia t hroughout his stay A1c was obtained and was 5.2. Magnesium is 2.0. His bilirubin is down to 1.1. AST is down to 50, ALT down to 259, alkaline phosphatase down to 138. His CRP is up to 16.3. Albumin is down to 2.8. This is not surprising as the patient has been n.p.o. for the past day and a half. Diet was advanced to clear liquids which he tolerated well. We will advance to full liquids and then continue advancing as tolerated. IV fluids will be stopped once patient is eating better. Pain medications were switched to p.o. with morphine for breakthrough pain. Likely discharge tomorrow pending continued improvement and success with advancing diet. <Jeffrey Watkins - Last Filed: 04/22/21 12:29> - Patient Data Vitals - Most Recent: Last Vital Signs Temp 36.9 C 04/22/21 07:43 Pulse 96 04/22/21 07:43 Resp 20 04/22/21 07:43 BP 133/75 04/22/21 07:43 Pulse Ox 98 04/22/21 07:43 I&O - Last 24 Hours: Intake & Output 04/21/21 04/22/21 04/22/21 22:59 06:59 14:59 Intake Total 1600 50 Output Total 400 Balance 1600 -400 50 Lab Results Last 24 Hours: Laboratory Results - last 24 hr 04/22/21 04/22/21 04/22/21 Range/Units 04:52 04:52 04:52 WBC 16.96 H (4.23-9.07) K/mm3 RBC 4.37 L (4.63-6.08) M/mm3 Hgb 12.5 L (13.7-17.5) gm/dl Hct 39.6 L (40.1-51.0) % MCV 90.6 (79.0-92.2) fl MCH 28.6 (25.7-32.2) pg MCHC 31.6 L (32.2-35.5) g/dl RDW Std Deviation 46.0 H (35.1-43.9) fL Plt Count 243 (163-337) K/mm3 MPV 12.0 (9.4-12.3) fl Neut % (Auto) 73.4 H (34.0-67.9) % Lymph % (Auto) 13.2 L (21.8-53.1) % Pickett % (Auto) 12.3 H (5.3-12.2) % Eos % (Auto) 0.7 L (0.8-7.0) Baso % (Auto) 0.2 (0.1-1.2) % Neut # (Auto) 12.44 H (1.78-5.38) K/mm3 Lymph # (Auto) 2.24 (1.32-3.57) K/mm3 Pickett # (Auto) 2.08 H (0.30-0.82) K/mm3 Eos # (Auto) 0.12 (0.04-0.54) K/mm3 Baso # (Auto) 0.04 (0.01-0.08) K/mm3 Manual Slide Review Abnormal smear Sodium 142 (136-145) mEq/L Potassium 3.5 (3.5-5.1) mEq/L Chloride 106 (98-107) mEq/L Carbon Dioxide 28 (21-32) mEq/L Anion Gap 11.5 (5-15) BUN 15 (7-18) mg/dL Creatinine 0.8 (0.7-1.3) mg/dL Est Cr Clr Drug Dosing 144.84 mL/min Estimated GFR (MDRD) > 60 (>60) mL/min BUN/Creatinine Ratio 18.8 H (14-18) Glucose 102 H (70-99) mg/dL Hemoglobin A1c 5.2 ( - 5.6) % Calcium 8.1 L (8.5-10.1) mg/dL Magnesium 2.0 (1.8-2.4) mg/dL Total Bilirubin 1.1 H (0.2-1.0) mg/dL AST 50 H (15-37) U/L ALT 259 H (16-63) U/L Alkaline Phosphatase 138 H (46-116) U/L C-Reactive Protein 16.3 H* (<1.0) mg/dL Total Protein 6.7 (6.4-8.2) g/dl Albumin 2.8 L (3.4-5.0) g/dl Globulin 3.9 gm/dL Albumin/Globulin Ratio 0.7 L (1-2) Med Orders - Current: Current Medications Docusate Sodium (Docusate Sodium 100 Mg Cap) 100 mg PO BID PRN PRN Reason: Constipation Enoxaparin Sodium (Enoxaparin 40 Mg/0.4 Ml Syringe) 40 mg SUBCUT DAILY [facility] Last Admin: 04/22/21 08:41 Dose: 40 mg Documented by: Sodium Chloride (Normal Saline) 1,000 mls @ 125 mls/hr IV ASDIRECTED [facility] Last Admin: 04/22/21 01:24 Dose: 125 mls/hr Documented by: Morphine Sulfate (Morphine 2 Mg/Ml Syringe) 2 mg IVPUSH Q2H PRN PRN Reason: Pain (severe 7-10) Last Admin: 04/22/21 05:19 Dose: 2 mg Documented by: Ondansetron HCl (Ondansetron 4 Mg/2 Ml Sdv) 4 mg IV Q4H PRN PRN Reason: Nausea/Vomiting Last Admin: 04/20/21 14:18 Dose: 4 mg Documented by: Oxycodone HCl (Oxycodone 5 Mg Tab) 5 mg PO Q6H PRN PRN Reason: Pain (moderate 4-6) Pantoprazole Sodium (Pantoprazole 40 Mg Vial) 40 mg IV Q12HR [facility] Last Admin: 04/22/21 08:41 Dose: 40 mg Documented by: Sodium Chloride (Sodium Chloride 0.9% 10 Ml Syringe) 10 ml FLUSH ASDIRECTED PRN PRN Reason: Keep Vein Open Last Admin: 04/20/21 10:41 Dose: 10 ml Documented by: Temazepam (Temazepam 15 Mg Cap) 15 mg PO BEDTIME PRN PRN Reason: Sleep Last Admin: 04/22/21 01:24 Dose: 15 mg Documented by: Discontinued Medications Diatrizoate Meglum/Diatrizoate Sod (Diatrizoate Meglumine/Diatrizoate Sodium 37% 120 Ml Bottle) 120 ml PO ONETIME ONE Stop: 04/20/21 11:17 Last Admin: 04/20/21 11:44 Dose: 45 ml Documented by: Sodium Chloride (Normal Saline) 1,000 mls @ 999 mls/hr IV ONETIME ONE Stop: 04/20/21 11:04 Last Admin: 04/20/21 10:40 Dose: 999 mls/hr Documented by: Lactated Ringer's (Ringers, Lactated) 1,000 mls @ 999 mls/hr IV .BOLUS ONE Stop: 04/20/21 13:31 Last Admin: 04/20/21 12:39 Dose: 999 mls/hr Documented by: Iopamidol (Iopamidol 612 Mg/Ml 50 Ml Sdv) 50 ml IVPUSH ONETIME ONE Stop: 04/20/21 11:17 Last Admin: 04/20/21 11:44 Dose: 50 ml Documented by: Iopamidol (Iopamidol 612 Mg/Ml 100 Ml Bottle) 100 ml IVPUSH ONETIME ONE Stop: 04/20/21 11:17 Last Admin: 04/20/21 11:44 Dose: 100 ml Documented by: Morphine Sulfate (Morphine 4 Mg/Ml Syringe) 4 mg IVPUSH ONETIME ONE Stop: 04/20/21 10:05 Last Admin: 04/20/21 10:40 Dose: 4 mg Documented by: Morphine Sulfate (Morphine 2 Mg/Ml Syringe) 2 mg IVPUSH Q2H PRN PRN Reason: Pain (severe 7-10) Stop: 04/21/21 13:08 Last Admin: 04/21/21 11:37 Dose: 2 mg Documented by: Ondansetron HCl (Ondansetron 4 Mg/2 Ml Sdv) 4 mg IVPUSH ONETIME ONE Stop: 04/20/21 10:05 Last Admin: 04/20/21 10:37 Dose: 4 mg Documented by: Pantoprazole Sodium (Pantoprazole 40 Mg Vial) 40 mg IVPUSH ONETIME ONE Stop: 04/20/21 12:33 Last Admin: 04/20/21 12:39 Dose: 40 mg Documented by: Sodium Chloride (Sodium Chloride 0.9% 10 Ml Syringe) 10 ml FLUSH ASDIRECTED [facility] Last Admin: 04/20/21 11:44 Dose: 10 ml Documented by: - Patient Data Lab Results Last 24 hrs: Laboratory Results - last 24 hr 04/22/21 04/22/21 04/22/21 Range/Units 04:52 04:52 04:52 WBC 16.96 H (4.23-9.07) K/mm3 RBC 4.37 L (4.63-6.08) M/mm3 Hgb 12.5 L (13.7-17.5) gm/dl Hct 39.6 L (40.1-51.0) % MCV 90.6 (79.0-92.2) fl MCH 28.6 (25.7-32.2) pg MCHC 31.6 L (32.2-35.5) g/dl RDW Std Deviation 46.0 H (35.1-43.9) fL Plt Count 243 (163-337) K/mm3 MPV 12.0 (9.4-12.3) fl Neut % (Auto) 73.4 H (34.0-67.9) % Lymph % (Auto) 13.2 L (21.8-53.1) % Pickett % (Auto) 12.3 H (5.3-12.2) % Eos % (Auto) 0.7 L (0.8-7.0) Baso % (Auto) 0.2 (0.1-1.2) % Neut # (Auto) 12.44 H (1.78-5.38) K/mm3 Lymph # (Auto) 2.24 (1.32-3.57) K/mm3 Pickett # (Auto) 2.08 H (0.30-0.82) K/mm3 Eos # (Auto) 0.12 (0.04-0.54) K/mm3 Baso # (Auto) 0.04 (0.01-0.08) K/mm3 Manual Slide Review Abnormal smear Sodium 142 (136-145) mEq/L Potassium 3.5 (3.5-5.1) mEq/L Chloride 106 (98-107) mEq/L Carbon Dioxide 28 (21-32) mEq/L Anion Gap 11.5 (5-15) BUN 15 (7-18) mg/dL Creatinine 0.8 (0.7-1.3) mg/dL Est Cr Clr Drug Dosing 144.84 mL/min Estimated GFR (MDRD) > 60 (>60) mL/min BUN/Creatinine Ratio 18.8 H (14-18) Glucose 102 H (70-99) mg/dL Hemoglobin A1c 5.2 ( - 5.6) % Calcium 8.1 L (8.5-10.1) mg/dL Magnesium 2.0 (1.8-2.4) mg/dL Total Bilirubin 1.1 H (0.2-1.0) mg/dL AST 50 H (15-37) U/L ALT 259 H (16-63) U/L Alkaline Phosphatase 138 H (46-116) U/L C-Reactive Protein 16.3 H* (<1.0) mg/dL Total Protein 6.7 (6.4-8.2) g/dl Albumin 2.8 L (3.4-5.0) g/dl Globulin 3.9 gm/dL Albumin/Globulin Ratio 0.7 L (1-2) Result Diagrams: 04/22/21 04:52 04/22/21 04:52 Sepsis Event Note - Focused Exam Vital Signs: Vital Signs Temp Pulse Resp BP Pulse Ox 04/22/21 07:43 36.9 C 96 20 133/75 98 04/22/21 03:13 37.1 C 85 16 129/63 96 - Problem List & Annotations (1) Pancreatitis, acute SNOMED Code(s): 058335012 Code(s): K85.90 - ACUTE PANCREATITIS WITHOUT NECROSIS OR INFECTION, UNSP Status: Acute Priority: High Current Visit: Yes Qualifiers: Pancreatitis type: biliary Acute pancreatitis complication: unspecified Qualified Code(s): K85.10 - Biliary acute pancreatitis without necrosis or infection (2) Leukocytosis, unspecified SNOMED Code(s): 765213958, 306067658 Code(s): D72.829 - ELEVATED WHITE BLOOD CELL COUNT, UNSPECIFIED Status: Acute Priority: High Current Visit: Yes Qualifiers: Leukocytosis type: bandemia Qualified Code(s): D72.825 - Bandemia (3) Pleurisy SNOMED Code(s): 732531711 Code(s): R09.1 - PLEURISY Status: Acute Priority: High Current Visit: Yes (4) 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 I have reviewed plan as outlined by him. I agree with the orders as outlined by him. Please see orders.
[2021-04-22] MEDS ORDERED: oxyCODONE 5 MG Tab PO PRN (07:28)
[2021-04-22 07:38] LABS: HEMOGLOBIN A1C 5.2 %
[2021-04-22] MEDS: Pantoprazole 40 MG Vial IV SCH ×2 (08:41→20:08)
[2021-04-22] MEDS: Enoxaparin 40 MG/0.4 ML Syringe SUBCUT SCH (08:41)
--- NOTE | 2021-04-22 18:54 | PCM.CONSN ---
- General Info Date of Service: 04/22/21 Admission Dx/Problem (Free Text): Admission Diagnosis/Problem Admission Diagnosis/Problem Pancreatitis due to biliary obstruction Functional Status: Reports: Pain Controlled, Other (reports pain is much improved from yesterday.) - Patient Data Vitals - Most Recent: Last Vital Signs Temp 37.6 C 04/22/21 15:22 Pulse 85 04/22/21 15:22 Resp 20 04/22/21 15:22 BP 108/53 L 04/22/21 15:22 Pulse Ox 95 04/22/21 15:22 Weight - Most Recent: 97.296 kg I&O - Last 24 Hours: Intake & Output 04/22/21 04/22/21 04/22/21 06:59 14:59 22:59 Intake Total 50 350 Output Total 400 Balance -400 50 350 Lab Results Last 24 Hours: Laboratory Results - last 24 hr 04/22/21 04/22/21 04/22/21 Range/Units 04:52 04:52 04:52 WBC 16.96 H (4.23-9.07) K/mm3 RBC 4.37 L (4.63-6.08) M/mm3 Hgb 12.5 L (13.7-17.5) gm/dl Hct 39.6 L (40.1-51.0) % MCV 90.6 (79.0-92.2) fl MCH 28.6 (25.7-32.2) pg MCHC 31.6 L (32.2-35.5) g/dl RDW Std Deviation 46.0 H (35.1-43.9) fL Plt Count 243 (163-337) K/mm3 MPV 12.0 (9.4-12.3) fl Neut % (Auto) 73.4 H (34.0-67.9) % Lymph % (Auto) 13.2 L (21.8-53.1) % [place] % (Auto) 12.3 H (5.3-12.2) % Eos % (Auto) 0.7 L (0.8-7.0) Baso % (Auto) 0.2 (0.1-1.2) % Neut # (Auto) 12.44 H (1.78-5.38) K/mm3 Lymph # (Auto) 2.24 (1.32-3.57) K/mm3 [place] # (Auto) 2.08 H (0.30-0.82) K/mm3 Eos # (Auto) 0.12 (0.04-0.54) K/mm3 Baso # (Auto) 0.04 (0.01-0.08) K/mm3 Manual Slide Review Abnormal smear Sodium 142 (136-145) mEq/L Potassium 3.5 (3.5-5.1) mEq/L Chloride 106 (98-107) mEq/L Carbon Dioxide 28 (21-32) mEq/L Anion Gap 11.5 (5-15) BUN 15 (7-18) mg/dL Creatinine 0.8 (0.7-1.3) mg/dL Est Cr Clr Drug Dosing 144.84 mL/min Estimated GFR (MDRD) > 60 (>60) mL/min BUN/Creatinine Ratio 18.8 H (14-18) Glucose 102 H (70-99) mg/dL Hemoglobin A1c 5.2 ( - 5.6) % Calcium 8.1 L (8.5-10.1) mg/dL Magnesium 2.0 (1.8-2.4) mg/dL Total Bilirubin 1.1 H (0.2-1.0) mg/dL AST 50 H (15-37) U/L ALT 259 H (16-63) U/L Alkaline Phosphatase 138 H (46-116) U/L C-Reactive Protein 16.3 H* (<1.0) mg/dL Total Protein 6.7 (6.4-8.2) g/dl Albumin 2.8 L (3.4-5.0) g/dl Globulin 3.9 gm/dL Albumin/Globulin Ratio 0.7 L (1-2) Med Orders - Current: Current Medications Docusate Sodium (Docusate Sodium 100 Mg Cap) 100 mg PO BID PRN PRN Reason: Constipation Enoxaparin Sodium (Enoxaparin 40 Mg/0.4 Ml Syringe) 40 mg SUBCUT DAILY [facility] Last Admin: 04/22/21 08:41 Dose: 40 mg Documented by: Morphine Sulfate (Morphine 2 Mg/Ml Syringe) 2 mg IVPUSH Q2H PRN PRN Reason: Pain (severe 7-10) Last Admin: 04/22/21 05:19 Dose: 2 mg Documented by: Ondansetron HCl (Ondansetron 4 Mg/2 Ml Sdv) 4 mg IV Q4H PRN PRN Reason: Nausea/Vomiting Last Admin: 04/20/21 14:18 Dose: 4 mg Documented by: Oxycodone HCl (Oxycodone 5 Mg Tab) 5 mg PO Q6H PRN PRN Reason: Pain (moderate 4-6) Last Admin: 04/22/21 14:41 Dose: 5 mg Documented by: Pantoprazole Sodium (Pantoprazole 40 Mg Vial) 40 mg IV Q12HR ELOINA Last Admin: 04/22/21 08:41 Dose: 40 mg Documented by: Sodium Chloride (Sodium Chloride 0.9% 10 Ml Syringe) 10 ml FLUSH ASDIRECTED PRN PRN Reason: Keep Vein Open Last Admin: 04/20/21 10:41 Dose: 10 ml Documented by: Temazepam (Temazepam 15 Mg Cap) 15 mg PO BEDTIME PRN PRN Reason: Sleep Last Admin: 04/22/21 01:24 Dose: 15 mg Documented by: Discontinued Medications Diatrizoate Meglum/Diatrizoate Sod (Diatrizoate Meglumine/Diatrizoate Sodium 37% 120 Ml Bottle) 120 ml PO ONETIME ONE Stop: 04/20/21 11:17 Last Admin: 04/20/21 11:44 Dose: 45 ml Documented by: Sodium Chloride (Normal Saline) 1,000 mls @ 999 mls/hr IV ONETIME ONE Stop: 04/20/21 11:04 Last Admin: 04/20/21 10:40 Dose: 999 mls/hr Documented by: Lactated Ringer's (Ringers, Lactated) 1,000 mls @ 999 mls/hr IV .BOLUS ONE Stop: 04/20/21 13:31 Last Admin: 04/20/21 12:39 Dose: 999 mls/hr Documented by: Sodium Chloride (Normal Saline) 1,000 mls @ 125 mls/hr IV ASDIRECTED ELOINA Last Admin: 04/22/21 01:24 Dose: 125 mls/hr Documented by: Iopamidol (Iopamidol 612 Mg/Ml 50 Ml Sdv) 50 ml IVPUSH ONETIME ONE Stop: 04/20/21 11:17 Last Admin: 04/20/21 11:44 Dose: 50 ml Documented by: Iopamidol (Iopamidol 612 Mg/Ml 100 Ml Bottle) 100 ml IVPUSH ONETIME ONE Stop: 04/20/21 11:17 Last Admin: 04/20/21 11:44 Dose: 100 ml Documented by: Morphine Sulfate (Morphine 4 Mg/Ml Syringe) 4 mg IVPUSH ONETIME ONE Stop: 04/20/21 10:05 Last Admin: 04/20/21 10:40 Dose: 4 mg Documented by: Morphine Sulfate (Morphine 2 Mg/Ml Syringe) 2 mg IVPUSH Q2H PRN PRN Reason: Pain (severe 7-10) Stop: 04/21/21 13:08 Last Admin: 04/21/21 11:37 Dose: 2 mg Documented by: Ondansetron HCl (Ondansetron 4 Mg/2 Ml Sdv) 4 mg IVPUSH ONETIME ONE Stop: 04/20/21 10:05 Last Admin: 04/20/21 10:37 Dose: 4 mg Documented by: Pantoprazole Sodium (Pantoprazole 40 Mg Vial) 40 mg IVPUSH ONETIME ONE Stop: 04/20/21 12:33 Last Admin: 04/20/21 12:39 Dose: 40 mg Documented by: Sodium Chloride (Sodium Chloride 0.9% 10 Ml Syringe) 10 ml FLUSH ASDIRECTED [facility] Last Admin: 04/20/21 11:44 Dose: 10 ml Documented by: - Exam General: Alert Neck: Supple Lungs: Normal Respiratory Effort GI/Abdominal Exam: Soft, Tender (in epigastrium) Sepsis Event Note - Evaluation Sepsis Screening Result: No Definite Risk - Focused Exam Vital Signs: Vital Signs Temp Pulse Resp BP Pulse Ox 04/22/21 15:22 37.6 C 85 20 108/53 L 95 04/22/21 11:22 36.8 C 90 20 128/75 98 04/22/21 07:43 36.9 C 96 20 133/75 98 Consult PN Assessment/Plan Procedures: Procedures ASSAY OF TROPONIN QUANT (03/20/21) COMPLETE CBC W/AUTO DIFF WBC (03/20/21) COMPREHEN METABOLIC PANEL (03/20/21) ELECTROCARDIOGRAM TRACING (03/20/21) EMERGENCY DEPT VISIT (03/20/21) FIBRIN DEGRADATION QUANT (03/20/21) ROUTINE VENIPUNCTURE (03/20/21) X-RAY EXAM CHEST 1 VIEW (03/20/21) (1) Gallstones SNOMED Code(s): 232519327 Code(s): K80.20 - CALCULUS OF GALLBLADDER W/O CHOLECYSTITIS W/O OBSTRUCTION Priority: High Current Visit: Yes (2) Pancreatitis, acute SNOMED Code(s): 601297406 Code(s): K85.90 - ACUTE PANCREATITIS WITHOUT NECROSIS OR INFECTION, UNSP Priority: High Current Visit: Yes Qualifiers: Pancreatitis type: biliary Acute pancreatitis complication: unspecified Qualified Code(s): K85.10 - Biliary acute pancreatitis without necrosis or infection (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 Izabel Youngblood MD General surgery
[2021-04-23] MEDS ORDERED: Potassium Chloride 20 MEQ Tab.ER PO ONE (07:33)
[2021-04-23] MEDS: Pantoprazole 40 MG Vial IV SCH (08:08)
[2021-04-23] MEDS: Enoxaparin 40 MG/0.4 ML Syringe SUBCUT SCH (08:14)
--- NOTE | 2021-04-23 08:37 | PCM.DCSUM1 ---
<Eulalio Molina - Last Filed: 04/23/21 08:37> Discharge Summary - Hospital Course HPI Initial Comments: The patient is an otherwise healthy 20-year-old gentleman who has presented to the emergency department with a complaint of midsternal chest pain. The patient had presented to the emergency department because he has been recently diagnosed with Nojdi-Eclpbmeab-Jchjb syndrome and he has been told previously that this is resulted in his chest pain. The patient had been worked up in the emergency department and it was reported that he had epigastric pain along with right upper quadrant pain. The patient says that his pain started up around 7 PM 2 days ago and did not have a specific aggravating event. The patient says that his pain has been worsened with the use of food. He also says that the pain has been sharp and stabbing. The patient also says that he has had some nausea and vomiting and has not been able to keep food or water down. The patient denies any alcohol use. The patient says that he is currently working. The patient says that he has follow-up scheduled with cardiology. Diagnosis: Stroke: No - Discharge Data Discharge Date: 04/23/21 (Admit date: 04/20/2021) Discharge Disposition: Home, Self-Care 01 Condition: Good - Referral to Home Health Primary Care Physician: PCP None - Discharge Diagnosis/Problem(s) (1) Obesity (BMI 30.0-34.9) SNOMED Code(s): 279235580514582 ICD Code: E66.9 - OBESITY, UNSPECIFIED Status: Chronic Priority: Medium (2) Pancreatitis, acute SNOMED Code(s): 037348747 ICD Code: K85.90 - ACUTE PANCREATITIS WITHOUT NECROSIS OR INFECTION, UNSP Status: Acute Priority: High Qualifiers: Pancreatitis type: biliary Acute pancreatitis complication: unspecified Qualified Code(s): K85.10 - Biliary acute pancreatitis without necrosis or infe ction (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 SNOMED Code(s): 012405895 ICD Code: I45.6 - PRE-EXCITATION SYNDROME Status: Chronic Priority: Medium (4) Hyperlipidemia SNOMED Code(s): 43828215 ICD Code: E78.5 - HYPERLIPIDEMIA, UNSPECIFIED Status: Acute Priority: Medium Qualifiers: Hyperlipidemia type: unspecified Qualified Code(s): E78.5 - Hyperlipidemia, unspecified (5) Transaminitis SNOMED Code(s): 733054650, 557284354 ICD Code: R74.01 - ELEVATION OF LEVELS OF LIVER TRANSAMINASE LEVELS Status: Acute Priority: High (6) Hyperbilirubinemia SNOMED Code(s): 79932284 ICD Code: E80.6 - OTHER DISORDERS OF BILIRUBIN METABOLISM Status: Acute Priority: High (7) Gallstones SNOMED Code(s): 984866468 ICD Code: K80.20 - CALCULUS OF GALLBLADDER W/O CHOLECYSTITIS W/O OBSTRUCTION Status: Acute Priority: High (8) Hypokalemia SNOMED Code(s): 01141371 ICD Code: E87.6 - HYPOKALEMIA Status: Acute Priority: High - Patient Summary/Data Consults: Consultations 04/21/21 08:52 Consult to Face Man [CONS] Routine 04/21/21 09:49 Consult to Physician [CONS] Routine Labs Pending at D/C: None Recommended Follow-up Testing/Procedures: Follow-up with primary care provider within 7 to 10 days of discharge, sooner if needed. -Recommend repeat CBC, CMP, and magnesium at that visit -Patient's potassium was low here and was supplemented prior to discharge. Monitor this. Follow-up with cardiology regarding your new diagnosis of Heoky-Fynzancnf-Bycod syndrome. Follow-up with Dr. Martini, general surgery, regarding gallstones. Hospital Course: This is a 20-year-old male presents to ED on 04/20/2021 with pain in his epigastric and retrosternal area. He was reportedly vomiting and unable to keep anything down. He reports that his appetite tight was minimal. He carries a history of Dapmk-Bvxplxmye-Gjyoi syndrome but has yet to see cardiology. He also is obese. He was noted to have a leukocytosis of 23.34 on admission and was quite dry. Lipase was 2430. Chest x-ray is obtained showing nothing acute. CT of the abdomen pelvis showed inflammatory change either off the inferior pancreas or duodenum. This causes inflammatory change within the anterior pararenal fascia extending into the pelvis on both sides. Please correlate with patient's symptoms and laboratory values. There was also slight atelectasis within the lung bases noted but no other acute abnormality. He was admitted to the medical floor on telemetry for management of his pancreatitis. Abdominal ultrasound was obtained and was noted to be less than optimal study. There was cholelithiasis with no gallbladder wall thickening or biliary duct dilation seen but the pancreas was completely obscured. Patient reports that he is not a drinker. Triglycerides were normal at 93 however total cholesterol was 215 and LDL was 127. HDL was 57. Patient's bilirubin on admission was elevated at 2.4 AST was elevated at 147, ALT was elevated at 541, alkaline phosphatase was elevated at 240. All of these did trend downward throughout his stay. It is therefore felt that because of his pancreatitis is biliary in nature. Hemoglobin A1c was obtained and was 5.2. Potassium prior to discharge was noted to be low at 3.3 and this was supplemented orally. Patient's white count did trend downward and was 15 prior to discharge. He was given an utilizing incentive spirometer. He was n.p.o. for nearly 2 days and then diet was advanced with no issues. Patient's abdominal pain did greatly improve with a mild residual epigastric pain noted prior to discharge. Patient was noted to shower frequently has reports this greatly helps his symptoms. Dr. Martini, general surgeon, was brought in and does believe the patient will need a cholecystectomy eventually, however the patient will need to see cardiology first to be cleared for surgery. He did see our dietitian. Prior to discharge we did discuss avoiding fatty and greasy food. We discussed avoiding alcohol. We discussed winding back his diet to clear liquids if pain worsens. We discussed how he will need to follow-up with both cardiology and general surgery prior to discharge. Cardiology appointment was made. Patient does not have a primary care provider in case management was able to schedule him with Dr. Jones prior to discharge. Patient did request a work note and it is felt he may return to work on 04/28/2021 with no restrictions. He was given six 5 mg oxycodone tablets and told to utilize those for moderate to severe pain. He was warned that they can impair your ability to operate machinery or drive and that he should use caution. He was told to wean off these as soon as possible. Otherwise he has no home medications. He was instructed to contact his primary care provider return the emergency room should symptoms return or worsen. Discharged home today. - Patient Instructions Diet: Usual Diet as Tolerated Diet, Other: Non-fatty, non greasy, No alcohol. Activity: As Tolerated Driving: Do Not Drive (until feeling better. Do not drive while on narcotic pain medications.) Showering/Bathing: May Shower Notify Provider of: Fever, Increased Pain, Nausea and/or Vomiting Other/Special Instructions: Follow-up with primary care provider within 7-10 days of discharge, sooner if needed. Follow-up with Dr. Martini, general surgeon at [facility] after discharge regarding your gallstones. Follow-up with cardiology after dishcarge regarding your Txdf-Xlymrxvqd-Bkluh syndrome diagnosis. Take it easy on diet. No alcohol. Avoid fatty or greasy foods. If you start to have pain you may need to go back to a clear liquid diet and then slowly advance. You were given a prescription narcotic called oxycodone. This medication can impair your ability to drive or operate machinery. It can also cause constipation. Do not drive while on this medication. Take it sparingly for moderate to severe pain. Avoid tylenol. You may return to work on 04/28/2021 with no restrictions. Should symptoms return or worsen contact primary care provider or return to the Emergency Department. - Discharge Plan *PRESCRIPTION DRUG MONITORING PROGRAM REVIEWED*: No *COPY OF PRESCRIPTION DRUG MONITORING REPORT IN PATIENT MAAME: No Prescriptions/Med Rec: oxyCODONE 5 mg PO Q6H PRN #6 tablet PRN Reason: Pain (Moderate 4-6) Home Medications: Home Meds oxyCODONE 5 mg PO Q6H PRN #6 tablet 04/23/21 [Rx] Oxygen Therapy Mode: Room Air Patient Handouts: Preventing High Cholesterol, Acute Pancreatitis, Qjax-by-Jwyq, Hypokalemia, Cholelithiasis, Nfgy-xu-Dkrv, Zxoui-Hpvuhuesb-Ttgbq Syndrome, Potassium Content of Foods, Fat and Cholesterol Restricted Eating Plan, Safc-ik-Icar Referrals: Izabel Youngblood MD [Physician] - (Patient will need to make this appt. after he has seen cardiology. Patient may need to get gall bladder out. This is a surgeon at [facility] in [place].) Vick Schwartz MD [Ordering Only Provider] - 05/26/21 12:00 pm (This appointment is for your Rope [facility]utter and is in [facility]. Labs at 12:00 and appt. to follow at 1 p.m.) Brown Akers MD [Primary Care Provider] - 05/08/21 9:00 am (Please arrive at 9:00 for check in, this appointment is to establish care with a Primary Doctor.) - Discharge Summary/Plan Comment DC Time >30 min.: Yes (45 mins ) - General Info Date of Service: 04/23/21 Admission Dx/Problem (Free Text: Admission Diagnosis/Problem Admission Diagnosis/Problem Pancreatitis due to biliary obstruction Functional Status: Reports: Pain Controlled, Tolerating Diet, Ambulating, Urinating, Incentive Spirometry. Denies: New Symptoms - Review of Systems General: Reports: No Symptoms. Denies: Fever, Weakness, Fatigue, Malaise, Chills HEENT: Reports: No Symptoms. Denies: Headaches, Sore Throat Pulmonary: Reports: No Symptoms. Denies: Shortness of Breath, Cough, Sputum Cardiovascular: Reports: No Symptoms. Denies: Palpitations, Dyspnea on Exertion, Edema Gastrointestinal: Reports: Abdominal Pain (Mild epigastric - improving ). Denies: Constipation, Diarrhea, Nausea, Vomiting Genitourinary: Reports: No Symptoms. Denies: Pain Musculoskeletal: Reports: No Symptoms Skin: Reports: No Symptoms. Denies: Cyanosis Neurological: Reports: No Symptoms. Denies: Confusion, Dizziness, Headache, Numbness, Pre-Existing Deficit, Tingling, Difficulty Walking, Weakness, Gait Disturbance Psychiatric: Reports: No Symptoms - Patient Data Vitals - Most Recent: Last Vital Signs Temp 98.8 F 04/23/21 07:41 Pulse 57 L 04/23/21 07:41 Resp 20 04/23/21 07:41 BP 129/67 04/23/21 07:41 Pulse Ox 100 04/23/21 07:41 Weight - Most Recent: 96.57 kg I&O - Last 24 hours: Intake & Output 04/22/21 04/23/21 04/23/21 22:59 06:59 14:59 Intake Total 350 800 Output Total 500 Balance 350 300 Lab Results - Last 24 hrs: Laboratory Results - last 24 hr 04/23/21 04/23/21 Range/Units 05:55 05:55 WBC 15.00 H (4.23-9.07) K/mm3 RBC 4.38 L (4.63-6.08) M/mm3 Hgb 12.6 L (13.7-17.5) gm/dl Hct 38.6 L (40.1-51.0) % MCV 88.1 (79.0-92.2) fl MCH 28.8 (25.7-32.2) pg MCHC 32.6 (32.2-35.5) g/dl RDW Std Deviation 42.0 (35.1-43.9) fL Plt Count 261 (163-337) K/mm3 MPV 11.3 (9.4-12.3) fl Neut % (Auto) 72.6 H (34.0-67.9) % Lymph % (Auto) 13.1 L (21.8-53.1) % [place] % (Auto) 12.3 H (5.3-12.2) % Eos % (Auto) 1.5 (0.8-7.0) Baso % (Auto) 0.2 (0.1-1.2) % Neut # (Auto) 10.89 H (1.78-5.38) K/mm3 Lymph # (Auto) 1.96 (1.32-3.57) K/mm3 [place] # (Auto) 1.85 H (0.30-0.82) K/mm3 Eos # (Auto) 0.22 (0.04-0.54) K/mm3 Baso # (Auto) 0.03 (0.01-0.08) K/mm3 Manual Slide Review Abnormal smear Sodium 139 (136-145) mEq/L Potassium 3.3 L (3.5-5.1) mEq/L Chloride 103 (98-107) mEq/L Carbon Dioxide 26 (21-32) mEq/L Anion Gap 13.3 (5-15) BUN 11 (7-18) mg/dL Creatinine 0.8 (0.7-1.3) mg/dL Est Cr Clr Drug Dosing 144.84 mL/min Estimated GFR (MDRD) > 60 (>60) mL/min BUN/Creatinine Ratio 13.8 L (14-18) Glucose 102 H (70-99) mg/dL Calcium 8.3 L (8.5-10.1) mg/dL Magnesium 1.9 (1.8-2.4) mg/dL Total Bilirubin 1.1 H (0.2-1.0) mg/dL AST 44 H (15-37) U/L ALT 202 H (16-63) U/L Alkaline Phosphatase 127 H (46-116) U/L C-Reactive Protein 16.2 H* (<1.0) mg/dL Total Protein 6.9 (6.4-8.2) g/dl Albumin 2.8 L (3.4-5.0) g/dl Globulin 4.1 gm/dL Albumin/Globulin Ratio 0.7 L (1-2) Med Orders - Current: Current Medications Docusate Sodium (Docusate Sodium 100 Mg Cap) 100 mg PO BID PRN PRN Reason: Constipation Enoxaparin Sodium (Enoxaparin 40 Mg/0.4 Ml Syringe) 40 mg SUBCUT DAILY [facility] Last Admin: 04/23/21 08:14 Dose: 40 mg Documented by: Morphine Sulfate (Morphine 2 Mg/Ml Syringe) 2 mg IVPUSH Q2H PRN PRN Reason: Pain (severe 7-10) Last Admin: 04/22/21 05:19 Dose: 2 mg Documented by: Ondansetron HCl (Ondansetron 4 Mg/2 Ml Sdv) 4 mg IV Q4H PRN PRN Reason: Nausea/Vomiting Last Admin: 04/20/21 14:18 Dose: 4 mg Documented by: Oxycodone HCl (Oxycodone 5 Mg Tab) 5 mg PO Q6H PRN PRN Reason: Pain (moderate 4-6) Last Admin: 04/22/21 14:41 Dose: 5 mg Documented by: Pantoprazole Sodium (Pantoprazole 40 Mg Vial) 40 mg IV Q12HR [facility] Last Admin: 04/23/21 08:08 Dose: 40 mg Documented by: Sodium Chloride (Sodium Chloride 0.9% 10 Ml Syringe) 10 ml FLUSH ASDIRECTED PRN PRN Reason: Keep Vein Open Last Admin: 04/20/21 10:41 Dose: 10 ml Documented by: Temazepam (Temazepam 15 Mg Cap) 15 mg PO BEDTIME PRN PRN Reason: Sleep Last Admin: 04/22/21 01:24 Dose: 15 mg Documented by: Discontinued Medications Diatrizoate Meglum/Diatrizoate Sod (Diatrizoate Meglumine/Diatrizoate Sodium 37% 120 Ml Bottle) 120 ml PO ONETIME ONE Stop: 04/20/21 11:17 Last Admin: 04/20/21 11:44 Dose: 45 ml Documented by: Sodium Chloride (Normal Saline) 1,000 mls @ 999 mls/hr IV ONETIME ONE Stop: 04/20/21 11:04 Last Admin: 04/20/21 10:40 Dose: 999 mls/hr Documented by: Lactated Ringer's (Ringers, Lactated) 1,000 mls @ 999 mls/hr IV .BOLUS ONE Stop: 04/20/21 13:31 Last Admin: 04/20/21 12:39 Dose: 999 mls/hr Documented by: Sodium Chloride (Normal Saline) 1,000 mls @ 125 mls/hr IV ASDIRECTED [facility] Last Admin: 04/22/21 01:24 Dose: 125 mls/hr Documented by: Iopamidol (Iopamidol 612 Mg/Ml 50 Ml Sdv) 50 ml IVPUSH ONETIME ONE Stop: 04/20/21 11:17 Last Admin: 04/20/21 11:44 Dose: 50 ml Documented by: Iopamidol (Iopamidol 612 Mg/Ml 100 Ml Bottle) 100 ml IVPUSH ONETIME ONE Stop: 04/20/21 11:17 Last Admin: 04/20/21 11:44 Dose: 100 ml Documented by: Morphine Sulfate (Morphine 4 Mg/Ml Syringe) 4 mg IVPUSH ONETIME ONE Stop: 04/20/21 10:05 Last Admin: 04/20/21 10:40 Dose: 4 mg Documented by: Morphine Sulfate (Morphine 2 Mg/Ml Syringe) 2 mg IVPUSH Q2H PRN PRN Reason: Pain (severe 7-10) Stop: 04/21/21 13:08 Last Admin: 04/21/21 11:37 Dose: 2 mg Documented by: Ondansetron HCl (Ondansetron 4 Mg/2 Ml Sdv) 4 mg IVPUSH ONETIME ONE Stop: 04/20/21 10:05 Last Admin: 04/20/21 10:37 Dose: 4 mg Documented by: Pantoprazole Sodium (Pantoprazole 40 Mg Vial) 40 mg IVPUSH ONETIME ONE Stop: 04/20/21 12:33 Last Admin: 04/20/21 12:39 Dose: 40 mg Documented by: Potassium Chloride (Potassium Chloride 20 Meq Tab.Er) 40 meq PO ONETIME ONE Stop: 04/23/21 07:34 Last Admin: 04/23/21 08:14 Dose: 40 meq Documented by: Sodium Chloride (Sodium Chloride 0.9% 10 Ml Syringe) 10 ml FLUSH ASDIRECTED [facility] Last Admin: 04/20/21 11:44 Dose: 10 ml Documented by: - Exam Quality Assessment: Reports: DVT Prophylaxis. Denies: Supplemental Oxygen, Urine Catheter General: Reports: Alert, Oriented, Cooperative, No Acute Distress HEENT: Reports: Pupils Equal, Pupils Reactive, Mucous Membr. Moist/[place] Neck: Reports: Supple, Trachea Midline Lungs: Reports: Clear to Auscultation, Normal Respiratory Effort Cardiovascular: Reports: Regular Rate, Regular Rhythm GI/Abdominal Exam: Normal Bowel Sounds, Soft, No Distention, Tender (Mild epigastric region tenderness ). No: Guarding (Male) Exam: Deferred Rectal (Males) Exam: Deferred Back Exam: Reports: Normal Inspection, Full Range of Motion Extremities: Normal Inspection, Normal Range of Motion, Non-Tender, No Pedal Edema, Normal Capillary Refill Skin: Reports: Warm, Dry, Intact Neurological: Reports: No New Focal Deficit Psy/Mental Status: Reports: Alert, Normal Affect, Normal Mood <Jeffrey Watkins - Last Filed: 04/23/21 14:56> Discharge Summary - Referral to Home Health Primary Care Physician: Brown Akers MD - Discharge Diagnosis/Problem(s) (1) Pancreatitis, acute SNOMED Code(s): 032327012 ICD Code: K85.90 - ACUTE PANCREATITIS WITHOUT NECROSIS OR INFECTION, UNSP Status: Acute Priority: High Qualifiers: Pancreatitis type: biliary Acute pancreatitis complication: unspecified Qualified Code(s): K85.10 - Biliary acute pancreatitis without necrosis or infection (2) Leukocytosis, unspecified SNOMED Code(s): 231340632, 704874231 ICD Code: D72.829 - ELEVATED WHITE BLOOD CELL COUNT, UNSPECIFIED Status: Acute Priority: High Qualifiers: Leukocytosis type: bandemia Qualified Code(s): D72.825 - Bandemia (3) Pleurisy SNOMED Code(s): 869911960 ICD Code: R09.1 - PLEURISY Status: Acute Priority: High (4) 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 I have reviewed plan as outlined by him. I agree with the orders as outlined by him. Please see orders. - Patient Data Vitals - Most Recent: Last Vital Signs Temp 37.1 C 04/23/21 07:41 Pulse 57 L 04/23/21 07:41 Resp 20 04/23/21 07:41 BP 129/67 04/23/21 07:41 Pulse Ox 100 04/23/21 07:41 I&O - Last 24 hours: Intake & Output 04/22/21 04/23/21 04/23/21 22:59 06:59 14:59 Intake Total 470 800 440 Output Total 500 Balance 470 300 440 Lab Results - Last 24 hrs: Laboratory Results - last 24 hr 04/23/21 04/23/21 Range/Units 05:55 05:55 WBC 15.00 H (4.23-9.07) K/mm3 RBC 4.38 L (4.63-6.08) M/mm3 Hgb 12.6 L (13.7-17.5) gm/dl Hct 38.6 L (40.1-51.0) % MCV 88.1 (79.0-92.2) fl MCH 28.8 (25.7-32.2) pg MCHC 32.6 (32.2-35.5) g/dl RDW Std Deviation 42.0 (35.1-43.9) fL Plt Count 261 (163-337) K/mm3 MPV 11.3 (9.4-12.3) fl Neut % (Auto) 72.6 H (34.0-67.9) % Lymph % (Auto) 13.1 L (21.8-53.1) % [place] % (Auto) 12.3 H (5.3-12.2) % Eos % (Auto) 1.5 (0.8-7.0) Baso % (Auto) 0.2 (0.1-1.2) % Neut # (Auto) 10.89 H (1.78-5.38) K/mm3 Lymph # (Auto) 1.96 (1.32-3.57) K/mm3 [place] # (Auto) 1.85 H (0.30-0.82) K/mm3 Eos # (Auto) 0.22 (0.04-0.54) K/mm3 Baso # (Auto) 0.03 (0.01-0.08) K/mm3 Manual Slide Review Abnormal smear Sodium 139 (136-145) mEq/L Potassium 3.3 L (3.5-5.1) mEq/L Chloride 103 (98-107) mEq/L Carbon Dioxide 26 (21-32) mEq/L Anion Gap 13.3 (5-15) BUN 11 (7-18) mg/dL Creatinine 0.8 (0.7-1.3) mg/dL Est Cr Clr Drug Dosing 144.84 mL/min Estimated GFR (MDRD) > 60 (>60) mL/min BUN/Creatinine Ratio 13.8 L (14-18) Glucose 102 H (70-99) mg/dL Calcium 8.3 L (8.5-10.1) mg/dL Magnesium 1.9 (1.8-2.4) mg/dL Total Bilirubin 1.1 H (0.2-1.0) mg/dL AST 44 H (15-37) U/L ALT 202 H (16-63) U/L Alkaline Phosphatase 127 H (46-116) U/L C-Reactive Protein 16.2 H* (<1.0) mg/dL Total Protein 6.9 (6.4-8.2) g/dl Albumin 2.8 L (3.4-5.0) g/dl Globulin 4.1 gm/dL Albumin/Globulin Ratio 0.7 L (1-2) Med Orders - Current: Current Medications Discontinued Medications Diatrizoate Meglum/Diatrizoate Sod (Diatrizoate Meglumine/Diatrizoate Sodium 37% 120 Ml Bottle) 120 ml PO ONETIME ONE Stop: 04/20/21 11:17 Last Admin: 04/20/21 11:44 Dose: 45 ml Documented by: Docusate Sodium (Docusate Sodium 100 Mg Cap) 100 mg PO BID PRN PRN Reason: Constipation Enoxaparin Sodium (Enoxaparin 40 Mg/0.4 Ml Syringe) 40 mg SUBCUT DAILY [facility] Last Admin: 04/23/21 08:14 Dose: 40 mg Documented by: Sodium Chloride (Normal Saline) 1,000 mls @ 999 mls/hr IV ONETIME ONE Stop: 04/20/21 11:04 Last Admin: 04/20/21 10:40 Dose: 999 mls/hr Documented by: Lactated Ringer's (Ringers, Lactated) 1,000 mls @ 999 mls/hr IV .BOLUS ONE Stop: 04/20/21 13:31 Last Admin: 04/20/21 12:39 Dose: 999 mls/hr Documented by: Sodium Chloride (Normal Saline) 1,000 mls @ 125 mls/hr IV ASDIRECTED [facility] Last Admin: 04/22/21 01:24 Dose: 125 mls/hr Documented by: Iopamidol (Iopamidol 612 Mg/Ml 50 Ml Sdv) 50 ml IVPUSH ONETIME ONE Stop: 04/20/21 11:17 Last Admin: 04/20/21 11:44 Dose: 50 ml Documented by: Iopamidol (Iopamidol 612 Mg/Ml 100 Ml Bottle) 100 ml IVPUSH ONETIME ONE Stop: 04/20/21 11:17 Last Admin: 04/20/21 11:44 Dose: 100 ml Documented by: Morphine Sulfate (Morphine 4 Mg/Ml Syringe) 4 mg IVPUSH ONETIME ONE Stop: 04/20/21 10:05 Last Admin: 04/20/21 10:40 Dose: 4 mg Documented by: Morphine Sulfate (Morphine 2 Mg/Ml Syringe) 2 mg IVPUSH Q2H PRN PRN Reason: Pain (severe 7-10) Stop: 04/21/21 13:08 Last Admin: 04/21/21 11:37 Dose: 2 mg Documented by: Morphine Sulfate (Morphine 2 Mg/Ml Syringe) 2 mg IVPUSH Q2H PRN PRN Reason: Pain (severe 7-10) Last Admin: 04/22/21 05:19 Dose: 2 mg Documented by: Ondansetron HCl (Ondansetron 4 Mg/2 Ml Sdv) 4 mg IVPUSH ONETIME ONE Stop: 04/20/21 10:05 Last Admin: 04/20/21 10:37 Dose: 4 mg Documented by: Ondansetron HCl (Ondansetron 4 Mg/2 Ml Sdv) 4 mg IV Q4H PRN PRN Reason: Nausea/Vomiting Last Admin: 04/20/21 14:18 Dose: 4 mg Documented by: Oxycodone HCl (Oxycodone 5 Mg Tab) 5 mg PO Q6H PRN PRN Reason: Pain (moderate 4-6) Last Admin: 04/22/21 14:41 Dose: 5 mg Documented by: Pantoprazole Sodium (Pantoprazole 40 Mg Vial) 40 mg IVPUSH ONETIME ONE Stop: 04/20/21 12:33 Last Admin: 04/20/21 12:39 Dose: 40 mg Documented by: Pantoprazole Sodium (Pantoprazole 40 Mg Vial) 40 mg IV Q12HR [facility] Last Admin: 04/23/21 08:08 Dose: 40 mg Documented by: Potassium Chloride (Potassium Chloride 20 Meq Tab.Er) 40 meq PO ONETIME ONE Stop: 04/23/21 07:34 Last Admin: 04/23/21 08:14 Dose: 40 meq Documented by: Sodium Chloride (Sodium Chloride 0.9% 10 Ml Syringe) 10 ml FLUSH ASDIRECTED PRN PRN Reason: Keep Vein Open Last Admin: 04/20/21 10:41 Dose: 10 ml Documented by: Sodium Chloride (Sodium Chloride 0.9% 10 Ml Syringe) 10 ml FLUSH ASDIRECTED [facility] Last Admin: 04/20/21 11:44 Dose: 10 ml Documented by: Temazepam (Temazepam 15 Mg Cap) 15 mg PO BEDTIME PRN PRN Reason: Sleep Last Admin: 04/22/21 01:24 Dose: 15 mg Documented by:
== END 2021-04-23 09:26 | disposition home or self-care (01) | DRG 439 ==
LOC: JD.ED 09:12 → JD.MS 13:03
PROVIDERS: ADMIT Internal Medicine; ATTEND Internal Medicine
DX: K85.10 Biliary acute pancreatitis without necrosis or infection (principal); J98.11 Atelectasis; I45.6 Pre-excitation syndrome; E78.5 Hyperlipidemia, unspecified; R74.01 Elevation of levels of liver transaminase levels; E80.6 Other disorders of bilirubin metabolism; E87.6 Hypokalemia; E66.9 Obesity, unspecified; R09.1 Pleurisy; Z20.822 Contact with and (suspected) exposure to COVID-19; K80.20 Calculus of gallbladder without cholecystitis without obstruction; Z68.31 Body mass index [BMI] 31.0-31.9, adult; Z90.89 Acquired absence of other organs
CPT/HCPCS: 36415; 71045; 71045-26; 74177; 74177-26; 76705; 76705-26; 80053; 80061; 81001; 83036; 83690; 83735; 84484; 85025; 86140; 93005; 93010; 96374; 96375; 99223; 99233; 99239; 99285; 99285-25; A9270-GY; C9113; J1650; J2270; J2405; J7030; J7120; Q9963; Q9967; U0002

== ENCOUNTER → 2021-07-17 | Day surgery (SDC) | payer SELFPAY ==
[~2021-07-17] MED LIST: Bupivacaine 0.5%/EPINEPHrine 1:200,000 50 ML MDV ONE; Esmolol 100 MG/10 ML SDV ONE; HYDROmorphone 0.5 MG/0.5 ML Syringe ONE; Ketorolac 30 MG/ML SDV ONE; Lactated Ringers 1,000 ML IV SCH; Lactated Ringers 1,000 ML ONE; Lidocaine 1% 4 ML ONE; Lidocaine 1%/Sod Bicarbonate in NS 8.4% 1 ML Syringe IDERM PRN; Midazolam 1 MG/ML 2 ML SDV ONE; Ondansetron 4 MG/2 ML SDV ONE; Promethazine 12.5 MG in Sodium Chloride 0.9% 50 ML IV STA; Propofol 200 MG/20 ML SDV ONE; Rocuronium 50 MG/5 ML Vial ONE; Sodium Chloride 0.9% 10 ML Syringe FLUSH PRN; ceFAZolin 1 GM Vial ONE; fentaNYL 100 MCG/2 ML SDV IVPUSH PRN; fentaNYL 100 MCG/2 ML SDV ONE; fentaNYL 250 MCG/5 ML SDV ONE; oxyCODONE 5 MG Tab PO PRN
--- NOTE | 2021-07-17 10:14 | PCM.PRNOTE ---
- Free Text/Narrative Note: Date: 07/17/2021 Operation: laparoscopic cholecystectomy Indication: symptomatic cholelithiasis, history of gallstone pancreatitis Surgeon: Terrence De Paz MD Antibiotic: 2 g ancef IV pre-op EBL: 10 cc DVT ppx: SCD Findings: chronic inflammatory change with dense omental adhesion to gallbladder. Critical view of safety obtained. No spillage of bile. Detailed Report: The patient was taken to the operating room and placed on the table in supine position. Timeout was performed and general endotracheal anesthesia was initiated. Abdominal hair was clipped and the abdomen was prepped and draped in usual sterile fashion. The Veress needle was placed at the left upper quadrant in order to establish pneumoperitoneum. Air was aspirated inferior to the umbilicus with needle and syringe. A 5 mm bladed trocar was inserted at this site and a 5 mm 30 degree laparoscope was inserted into the abdomen. There appeared to be no inadvertent injury from Veress needle placement and this was removed under laparoscopic visualization. Additional 5 mm ports were placed at the right upper quadrant for the household assistant to retract the gallbladder cephalad and for the surgeon's left hand. A locking grasper was placed in the fundus of the gallbladder and the gallbladder was retracted anteriorly and superiorly. A 12 mm bladed trocar was inserted at the subxiphoid area. The patient was positioned in reverse Trendelenburg and rotated towards the surgeon standing on the patient's left side. The infundibulum was grasped and retracted laterally and the visceral peritoneum was dissected at this level using hook monopolar energy. Cystic structures were carefully dissected until the duct and artery were seen running towards the gallbladder with the free edge of the liver in view. A critical view of safety was obtained. Hemoclips were placed on the cystic duct and artery, with 2 clips on the stay side of the cystic duct. Structures were transected with laparoscopic reyna. There was a small pulsatile bleeder at the edge of the hemolock clip on the cystic artery, and an additional metal clip was applied to obtain hemostasis. Hook energy was used to take the gallbladder off the liver. The specimen was placed in an Endo Catch bag and removed through the subxiphoid site. The dissection field appeared clean and dry. The 12 mm port was removed and fascia was closed with 0 Vicryl using a laparoscopic suture passer. Lateral 5 mm ports were removed under laparoscopic visualization and hemostasis was satisfactory. Pneumoperitoneum was released and the final port was removed from the umbilicus. All skin incisions were closed with running subcuticular Vicryl suture and dressed with Dermabond. A total of 40 cc 0.5% Marcaine with epinephrine was used for local anesthetic throughout the case.
--- NOTE | 2021-07-17 10:24 | PCM.PREANE ---
Preanesthetic Assessment - Procedure Proposed Procedure: laparoscopic cholecystectomy - Anesthesia/Transfusion/Family Hx Anesthesia History: Prior Anesthesia Without Reaction Family History of Anesthesia Reaction: No Transfusion History: No Prior Transfusion(s) - Review of Systems General: No Symptoms Pulmonary: No Symptoms Cardiovascular: Other (WPW with heavy exercise the last time was over a month ago) Gastrointestinal: No Symptoms Neurological: No Symptoms Other: Reports: None - Physical Assessment NPO Status Date: 07/16/21 NPO Status Time: 20:00 Height: 1.75 m Weight: 95.4 kg ASA Class: 2 Mental Status: Alert & Oriented x3 Airway Class: Mallampati = 2 Dentition: Reports: Normal Dentition Thyro-Mental Finger Breadths: 2 Mouth Opening Finger Breadths: 2 ROM/Head Extension: Full Lungs: Clear to Auscultation, Normal Respiratory Effort Cardiovascular: Regular Rate, Regular Rhythm - Imaging/EKG Impressions: EKG sinus arrhythmia EF 65-70% - Allergies Allergies/Adverse Reactions: Allergies Allergy/AdvReac Type Severity Reaction Status Date / Time No Known Allergies Allergy Verified 07/16/21 16:13 - Blood Blood Available: No Product(s) Available: None - Anesthesia Plan Pre-Op Medication Ordered: None - Acknowledgements Anesthesia Type Planned: General Anesthesia Pt an Appropriate Candidate for the Planned Anesthesia: Yes Alternatives and Risks of Anesthesia Discussed w Pt/Guardian: Yes Pt/Guardian Understands and Agrees with Anesthesia Plan: Yes PreAnesthesia Questionnaire HEENT History: Cardiovascular History: Reports: High Cholesterol, Other (See Below) Other Cardiovascular History: WPW, chest pain Respiratory History: Reports: None Gastrointestinal History: Reports: GERD, Other (See Below) Other Gastrointestinal History: pancreatitis, gallstones, elevated bilirubin, epigastric pain, transaminitis Genitourinary History: Reports: None [employer]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 Musculoskeletal History: Reports: None Neurological History: Reports: None Psychiatric History: Reports: None Endocrine/Metabolic History: Reports: Obesity/BMI 30+ Hematologic History: Reports: None Immunologic History: Reports: None Oncologic (Cancer) History: Reports: None Dermatologic History: Reports: None - Infectious Disease History Infectious Disease History: Reports: None - Past Surgical History Head Surgeries/Procedures: Reports: None HEENT Surgical History: Reports: Tonsillectomy Cardiovascular Surgical History: Reports: None Respiratory Surgical History: Reports: None GI Surgical History: Reports: None Female Surgical History: Reports: None Male Surgical History: Reports: None Endocrine Surgical History: Reports: None Neurological Surgical History: Reports: None Musculoskeletal Surgical History: Reports: None Oncologic Surgical History: Reports: None Dermatological Surgical History: Reports: None - SUBSTANCE USE Tobacco Use Status *Q: Never Tobacco User Tobacco Use Within Last Twelve Months: No Second Hand Smoke Exposure: No Days Per Week of Alcohol Use: 0 Number of Drinks Per Day: 0 Total Drinks Per Week: 0 Recreational Drug Use History: No - HOME MEDS Home Medications: Home Meds oxyCODONE 5 mg PO Q4H PRN #15 tab 07/17/21 [Rx] - CURRENT (IN HOUSE) MEDS Current Meds: Current Medications Lactated Ringer's (Ringers, Lactated) 1,000 mls @ 125 mls/hr IV ASDIRECTED ELOINA Stop: 07/17/21 23:00 Lidocaine/Sodium Bicarbonate (Lidocaine 1%/Sod Bicarbonate In Ns 8.4% 1 Ml Syringe) 0.25 ml IDERM ONETIME PRN PRN Reason: Prior to IV Start Stop: 07/17/21 18:00 Sodium Chloride (Sodium Chloride 0.9% 10 Ml Syringe) 10 ml FLUSH ASDIRECTED PRN PRN Reason: Keep Vein Open Stop: 07/17/21 18:00 Discontinued Medications Bupivacaine HCl/Epinephrine Bitart (Bupivacaine 0.5%/Epinephrine 1:200,000 50 Ml Mdv) Confirm Administered Dose 50 ml .ROUTE .STK-MED ONE Stop: 07/17/21 10:09
--- NOTE | 2021-07-17 12:28 | PCM.POSTAN ---
POST ANESTHESIA ASSESSMENT - MENTAL STATUS Mental Status: Alert, Oriented - RESPIRATORY Respiratory Status: Respiratory Rate WNL, Airway Patent, O2 Saturation Stable - CARDIOVASCULAR CV Status: Pulse Rate WNL, Blood Pressure Stable - GASTROINTESTINAL GI Status: No Symptoms - PAIN Pain Score: 0 - POST OP HYDRATION Hydration Status: Adequate & Stable - OBSERVATIONS Free Text/Narrative:: no anesthesia complications noted
--- NOTE | 2021-07-18 07:18 | PCM48HPAN ---
Post Anesthesia Note - EVALUATION WITHIN 48HRS OF ANESTHETIC Vital Signs in Normal Range: Yes Patient Participated in Evaluation: Yes Respiratory Function Stable: Yes Airway Patent: Yes Cardiovascular Function Stable: Yes Hydration Status Stable: Yes Pain Control Satisfactory: Yes Nausea and Vomiting Control Satisfactory: Yes Mental Status Recovered: Yes Vital Signs: Last Vital Signs Temp 36.2 C 07/17/21 15:00 Pulse 78 07/17/21 15:00 Resp 16 07/17/21 15:00 BP 124/84 07/17/21 15:00 Pulse Ox 97 07/17/21 15:00
== END | disposition home or self-care (01) ==
LOC: JD.SDS 09:03
PROVIDERS: ATTEND Surgery
DX: K80.10 Calculus of gallbladder with chronic cholecystitis without obstruction (principal); E78.5 Hyperlipidemia, unspecified; E66.9 Obesity, unspecified; I45.6 Pre-excitation syndrome
CPT/HCPCS: 47562; J0690; J1170; J1885; J2250; J2405; J2704; J3010; J3490; J7120; 00790